=== PATIENT | female | born 1945 | race Caucasian/White ===

== ENCOUNTER 2017-05-24 13:20 | Outpatient (CLI) | payer OTHER | END 2017-05-24 18:34 | disposition home or self-care (01) | LOC: SMA 13:20 | PROVIDERS: ATTEND Internal Medicine | DX: Z12.31 Encounter for screening mammogram for malignant neoplasm of breast (principal) | CPT/HCPCS: G0202 ==

== ENCOUNTER 2017-07-28 14:03 | Outpatient (CLI) | payer OTHER ==
[~2017-07-28 14:03] MED LIST: ALLO100T PO; CARV25TA55 PO; DIGO125T4 PO; EZET10TA PO; METO2.5T15 PO; OMEP40CA33 PO; POTA20TA83 PO; PRO20 PO; REPA1TAB3 PO; ROSU20TA PO; SACU1TAB PO; WARF2.5T2 PO
== END 2017-07-28 17:25 | disposition home or self-care (01) ==
LOC: SRD 14:03
PROVIDERS: ATTEND Internal Medicine
DX: I50.9 Heart failure, unspecified (principal); I51.7 Cardiomegaly; I70.90 Unspecified atherosclerosis; J98.11 Atelectasis
CPT/HCPCS: 71020-TC

== ENCOUNTER 2018-03-03 04:57 | Inpatient (IN) | payer OTHER ==
[~2018-03-03] VITALS: Ht 157.5 cm; Wt 92.1 kg
[~2018-03-03 04:57] MED LIST changes: +ALLO100T91 PO; +AMI200 PO; +DIGO125T79 PO; +FURO-150 PO; +METO2.5T6 PO
[2018-03-03 04:58] VITALS: BP_SYST 131
[2018-03-03] MEDS ORDERED: NACL 0.9% 1,000 ML IV ONE (05:02)
[2018-03-03] MEDS ORDERED: NITROGLYCERIN 1 INCH (GM) OINT. TP ONE (05:15)
[2018-03-03] MEDS ORDERED: ASPIRIN 81 MG TAB.CHEW PO ONE (05:15)
[2018-03-03] MEDS ORDERED: KETOROLAC TROMETHAMINE 15 MG VIAL IVP ONE (05:15)
[2018-03-03] MEDS ORDERED: REPA0.5T4 PO (05:22)
[2018-03-03] MEDS ORDERED: CORCR20 PO (05:25)
[2018-03-03] MEDS ORDERED: SPIR25TA PO (05:25)
[2018-03-03 05:44] LABS: INR 1.4 (0.8-1.2)
[2018-03-03 05:49] LABS: PROTHROMBIN TIME 14.1 SECS (9.5-12.5)
[2018-03-03 05:51] LABS: HEMATOCRIT 41.8 % (36-48); HEMOGLOBIN 13.6 g/dL (12.0-16.0); MEAN CORPUSCULAR HEMOGLOBIN 28 pg (27-31); MEAN CORPUSCULAR HGB CONC 32 % (32-36); MEAN CORPUSCULAR VOLUME 85 fL (79.0-98.0); PLATELET COUNT (AUTO) 165 K/uL (130-430); RED BLOOD CELL COUNT(AUTO) 4.89 MIL/uL (4.2-6.2); RED CELL DISTRIBUTION WIDTH 19.1 % (9.0-15.0); WHITE BLOOD COUNT (AUTO) 6.5 K/uL (4.8-10.8)
[2018-03-03 06:08] LABS: ANION GAP 6 (5-15); CHLORIDE 103 mmol/L (98-107); GLUCOSE 111 mg/dL (70-99); POTASSIUM 4.6 mmol/L (3.5-5.1); SODIUM SERUM 135 mmol/L (136-145)
[2018-03-03 06:09] LABS: CALCIUM 9.4 mg/dL (8.4-11.0); CREATININE 1.76 mg/dL (0.55-1.30); UREA NITROGEN, BLOOD 52 mg/dL (8-21)
[2018-03-03 06:11] LABS: TOTAL BILIRUBIN 0.5 mg/dL (0.0-1.0)
[2018-03-03 06:14] LABS: ASPARTATE AMINOTRANSFERASE 59 U/L (10-37)
[2018-03-03 06:15] LABS: ALANINE AMINOTRANSFERASE 66 U/L (12-78); ALBUMIN 3.4 g/dL (3.4-4.8)
[2018-03-03 06:20] LABS: DIGOXIN 0.4 ng/mL (0.80-2.00)
[2018-03-03 06:36] LABS: BASOPHILS % (MANUAL) 0 % (0-2); EOSINOPHILS % (MANUAL) 3 % (0-7); LYMPHOCYTES % (MANUAL) 21 % (20-46); MONOCYTES % (MANUAL) 7 % (0-11)
[2018-03-03 08:10] VITALS: BP_SYST 132
[2018-03-03] MEDS ORDERED: REPAGLINIDE 1 MG TABLET (PRANDIN) PO ONE (08:30)
[2018-03-03] MEDS: ENTRESTO PO SCH ×2 (09:00→20:27)
[2018-03-03] MEDS ORDERED: METOLAZONE 2.5 MG TABLET PO SCH (09:00)
[2018-03-03] MEDS: FUROSEMIDE 20 MG TABLET PO SCH (10:00)
[2018-03-03] MEDS: EZETIMIBE 10 MG TABLET PO SCH (10:01)
[2018-03-03] MEDS: CARVEDILOL 25 MG TABLET (COREG) PO SCH ×2 (10:01→20:21)
[2018-03-03] MEDS: DIGOXIN 0.125 MG TABLET PO SCH (10:02)
[2018-03-03] MEDS: SPIRONOLACTONE 25 MG TABLET (ALDACTONE) PO SCH (10:02)
[2018-03-03] MEDS: POTASSIUM CHLORIDE 20 MEQ TAB.PRT.SR PO SCH ×2 (10:03→20:21)
[2018-03-03] MEDS: ALLOPURINOL 100 MG TABLET (ZYLOPRIM) PO SCH ×4 (10:03→20:21)
[2018-03-03] MEDS ORDERED: ONDANSETRON HCL 4 MG/2 ML VIAL IVP PRN (10:30)
[2018-03-03] MEDS ORDERED: MORPHINE 4 MG/ML INJ. SYRINGE IVP PRN (10:30)
[2018-03-03] MEDS ORDERED: MORPHINE 2 MG/ML INJ. SYRINGE IVP PRN (10:30)
[2018-03-03] MEDS ORDERED: ACETAMINOPHEN 325 MG TABLET PO PRN (10:30)
[2018-03-03 12:48] VITALS: BP_SYST 94
[2018-03-03] MEDS ORDERED: WARFARIN SODIUM 2.5 MG TABLET PO SCH (17:00)
[2018-03-03] MEDS: REPAGLINIDE 1 MG TABLET (PRANDIN) PO SCH (17:13)
[2018-03-03 17:20] VITALS: BP_SYST 95
[2018-03-03 20:09] VITALS: BP_SYST 115
[2018-03-03] MEDS ORDERED: SIMVASTATIN 20 MG TABLET PO SCH (21:00)
[2018-03-04 00:21] VITALS: BP_SYST 108
[2018-03-04 07:12] LABS: INR 1.5 (0.8-1.2); PROTHROMBIN TIME 15.2 SECS (9.5-12.5)
[2018-03-04] MEDS: REPAGLINIDE 1 MG TABLET (PRANDIN) PO SCH (07:51)
[2018-03-04 07:59] VITALS: BP_SYST 104
[2018-03-04] MEDS: ENTRESTO PO SCH (09:00)
[2018-03-04] MEDS: FUROSEMIDE 20 MG TABLET PO SCH (09:36)
[2018-03-04] MEDS: CARVEDILOL 25 MG TABLET (COREG) PO SCH (09:37)
[2018-03-04] MEDS: DIGOXIN 0.125 MG TABLET PO SCH (09:37)
[2018-03-04] MEDS: ALLOPURINOL 100 MG TABLET (ZYLOPRIM) PO SCH (09:37)
[2018-03-04] MEDS: POTASSIUM CHLORIDE 20 MEQ TAB.PRT.SR PO SCH (09:38)
[2018-03-04] MEDS: SPIRONOLACTONE 25 MG TABLET (ALDACTONE) PO SCH (09:38)
[2018-03-04] MEDS: EZETIMIBE 10 MG TABLET PO SCH (09:38)
[2018-03-04] MEDS ORDERED: INSULIN ASPART 100 UNITS/ML, 10 ML VIAL (NovoLOG) SUBCUT PRN (10:15)
[2018-03-04] MEDS ORDERED: GLUCOSE 15 GM GEL (in 37.5 GM TUBE) PO PRN ×2 (10:15)
[2018-03-04] MEDS ORDERED: DEXTROSE 50%-WATER 50 ML DISP.SYRIN IVP PRN ×2 (10:15)
[2018-03-04 11:05] LABS: BASOPHILS # (AUTO) 0.4 K/uL (0.0-0.2); BASOPHILS % (AUTO) 2.8 % (0.0-2.0); EOSINOPHILS # (AUTO) 0.1 K/uL (0.0-0.4); EOSINOPHILS % (AUTO) 0.4 % (0.0-4.0); HEMATOCRIT 40.5 % (36-48); HEMOGLOBIN 13.1 g/dL (12.0-16.0); LYMPHOCYTES # (AUTO) 0.9 K/uL (1.0-5.5); LYMPHOCYTES % (AUTO) 6.8 % (20.5-51.5); MEAN CORPUSCULAR HEMOGLOBIN 28 pg (27-31); MEAN CORPUSCULAR HGB CONC 32 % (32-36); MEAN CORPUSCULAR VOLUME 85 fL (79.0-98.0); MONOCYTES % (AUTO) 7.9 % (1.7-9.3); NEUTROPHILS # (AUTO) 10.2 K/uL (1.8-7.7); NEUTROPHILS % (AUTO) 82.1 % (40.0-70.0); PLATELET COUNT (AUTO) 148 K/uL (130-430); RED BLOOD CELL COUNT(AUTO) 4.75 MIL/uL (4.2-6.2); WHITE BLOOD COUNT (AUTO) 12.6 K/uL (4.8-10.8)
[2018-03-04 11:09] LABS: ANION GAP 8 (5-15); CALCIUM 9.2 mg/dL (8.4-11.0); CHLORIDE 101 mmol/L (98-107); CREATININE 1.54 mg/dL (0.55-1.30); GLUCOSE 114 mg/dL (70-99); POTASSIUM 4.6 mmol/L (3.5-5.1); SODIUM SERUM 135 mmol/L (136-145); UREA NITROGEN, BLOOD 51 mg/dL (8-21)
[2018-03-04 11:15] LABS: ALANINE AMINOTRANSFERASE 59 U/L (12-78); ALBUMIN 3.1 g/dL (3.4-4.8); ASPARTATE AMINOTRANSFERASE 54 U/L (10-37); TOTAL BILIRUBIN 0.7 mg/dL (0.0-1.0)
[2018-03-04 12:33] VITALS: BP_SYST 99
[2018-03-04 12:53] VITALS: BP_SYST 97
[2018-03-06] MEDS ORDERED: OMEPRAZOLE 20 MG CAPSULE.DR (PriLOSEC) PO SCH (09:00)
== END 2018-03-04 13:30 | disposition home or self-care (01) | DRG 683 ==
LOC: SED 04:57 → STU 07:14 → OBSVTOIN 15:01 → MERGE 15:01
PROVIDERS: ADMIT Internal Medicine Hospice and Palliative Medicine; ATTEND Internal Medicine Hospice and Palliative Medicine
DX: N17.9 Acute kidney failure, unspecified (principal); I42.9 Cardiomyopathy, unspecified; I13.0 Hypertensive heart and chronic kidney disease with heart failure and stage 1 through stage 4 chronic kidney disease, or unspecified chronic kidney disease; I48.1 Persistent atrial fibrillation; I50.22 Chronic systolic (congestive) heart failure; R07.89 Other chest pain; R10.32 Left lower quadrant pain; J44.9 Chronic obstructive pulmonary disease, unspecified; K21.9 Gastro-esophageal reflux disease without esophagitis; I50.9 Heart failure, unspecified; F32.9 Major depressive disorder, single episode, unspecified; I25.10 Atherosclerotic heart disease of native coronary artery without angina pectoris; N18.9 Chronic kidney disease, unspecified; E11.22 Type 2 diabetes mellitus with diabetic chronic kidney disease; E78.5 Hyperlipidemia, unspecified; Z99.81 Dependence on supplemental oxygen; Z79.899 Other long term (current) drug therapy; Z79.01 Long term (current) use of anticoagulants; Z95.810 Presence of automatic (implantable) cardiac defibrillator
CPT/HCPCS: 36415; 71045; 80053; 80162-TC; 82962; 84484; 85007; 85025; 85027; 85379; 85610-TC; 85730-TC; 93005; 93306; 96361; 96374; 99285; G0378; J1885; J2270

== ENCOUNTER 2018-05-26 08:39 | Outpatient (CLI) | payer OTHER ==
[~2018-05-26 08:39] MED LIST changes: -AMI200 PO; +DIGO-31 PO; -DIGO125T4 PO; +REPA0.5T4 PO; +SPIR25TA PO
== END 2018-05-26 18:15 | disposition home or self-care (01) ==
LOC: SMA 08:39
PROVIDERS: ATTEND Internal Medicine
DX: Z12.31 Encounter for screening mammogram for malignant neoplasm of breast (principal); I11.0 Hypertensive heart disease with heart failure; I50.9 Heart failure, unspecified; J44.9 Chronic obstructive pulmonary disease, unspecified; K21.9 Gastro-esophageal reflux disease without esophagitis; E11.9 Type 2 diabetes mellitus without complications
CPT/HCPCS: 77067

== ENCOUNTER 2018-08-29 06:46 | Inpatient (IN) | payer OTHER ==
[~2018-08-29] VITALS: Ht 157.5 cm; Wt 95.7 kg
[2018-08-29 07:06] VITALS: BP_SYST 125
[2018-08-29 07:41] LABS: BASOPHILS % (AUTO) 0.6 % (0.0-2.0); EOSINOPHILS % (AUTO) 0.4 % (0.0-4.0); HEMATOCRIT 40.6 % (36-48); HEMOGLOBIN 13.2 g/dL (12.0-16.0); LYMPHOCYTES # (AUTO) 1.2 K/uL (1.0-5.5); LYMPHOCYTES % (AUTO) 18.9 % (20.5-51.5); MEAN CORPUSCULAR HEMOGLOBIN 28 pg (27-31); MEAN CORPUSCULAR HGB CONC 32 % (32-36); MEAN CORPUSCULAR VOLUME 86 fL (79.0-98.0); MONOCYTES # (AUTO) 0.3 K/uL (0.0-1.0); MONOCYTES % (AUTO) 5.4 % (1.7-9.3); NEUTROPHILS # (AUTO) 4.9 K/uL (1.8-7.7); NEUTROPHILS % (AUTO) 74.7 % (40.0-70.0); PLATELET COUNT (AUTO) 139 K/uL (130-430); RED BLOOD CELL COUNT(AUTO) 4.74 MIL/uL (4.2-6.2); RED CELL DISTRIBUTION WIDTH 16.2 % (9.0-15.0); WHITE BLOOD COUNT (AUTO) 6.4 K/uL (4.8-10.8)
[2018-08-29 07:46] LABS: ANION GAP 11 (5-15); CHLORIDE 100 mmol/L (98-107); CREATININE 2.21 mg/dL (0.55-1.30); GLUCOSE 179 mg/dL (70-99); POTASSIUM 4.9 mmol/L (3.5-5.1); SODIUM SERUM 137 mmol/L (136-145); UREA NITROGEN, BLOOD 60 mg/dL (8-21)
[2018-08-29 07:50] LABS: INR 2.6 (0.8-1.2)
[2018-08-29 07:52] LABS: ALANINE AMINOTRANSFERASE 47 U/L (12-78); ALBUMIN 3.5 g/dL (3.4-4.8); ASPARTATE AMINOTRANSFERASE 63 U/L (10-37); TOTAL BILIRUBIN 0.7 mg/dL (0.0-1.0)
[2018-08-29] MEDS ORDERED: ONDANSETRON HCL 4 MG/2 ML VIAL IVP ONE (08:30)
[2018-08-29 09:42] VITALS: BP_SYST 125
[2018-08-29 12:00] VITALS: BP_SYST 133
[2018-08-29] MEDS ORDERED: FLUoxetine HCL 20 MG CAPSULE (PROzac) PO ONE (12:00)
[2018-08-29] MEDS ORDERED: OMEPRAZOLE 20 MG CAPSULE.DR (PriLOSEC) PO ONE (12:00)
[2018-08-29] MEDS ORDERED: FUROSEMIDE 20 MG/2 ML VIAL IVP SCH (12:00)
[2018-08-29] MEDS: ALLOPURINOL 100 MG TABLET (ZYLOPRIM) PO SCH ×2 (14:21→20:24)
[2018-08-29 16:00] VITALS: BP_SYST 137
[2018-08-29] MEDS: WARFARIN SODIUM 2.5 MG TABLET PO SCH (17:49)
[2018-08-29 20:00] VITALS: BP_SYST 117
[2018-08-29] MEDS: POTASSIUM CHLORIDE 20 MEQ TAB.PRT.SR PO SCH (20:22)
[2018-08-29] MEDS: FUROSEMIDE 20 MG/2 ML VIAL IVP SCH (20:22)
[2018-08-29] MEDS: ENTRESTO 49-51 MG PO SCH (20:23)
[2018-08-29] MEDS: CARVEDILOL 25 MG TABLET (COREG) PO SCH (20:23)
[2018-08-30] VITALS: BP_SYST 114
[2018-08-30] MEDS: OMEPRAZOLE 20 MG CAPSULE.DR (PriLOSEC) PO SCH (05:59)
[2018-08-30 07:04] LABS: ALANINE AMINOTRANSFERASE 36 U/L (12-78); ALBUMIN 3.2 g/dL (3.4-4.8); ANION GAP 8 (5-15); ASPARTATE AMINOTRANSFERASE 35 U/L (10-37); CALCIUM 9.6 mg/dL (8.4-11.0); CHLORIDE 101 mmol/L (98-107); CREATININE 2.25 mg/dL (0.55-1.30); GLUCOSE 105 mg/dL (70-99); POTASSIUM 4.8 mmol/L (3.5-5.1); SODIUM SERUM 136 mmol/L (136-145); TOTAL BILIRUBIN 0.6 mg/dL (0.0-1.0); UREA NITROGEN, BLOOD 62 mg/dL (8-21)
[2018-08-30 08:31] VITALS: BP_SYST 95
[2018-08-30] MEDS: CARVEDILOL 25 MG TABLET (COREG) PO SCH ×2 (09:00→21:17)
[2018-08-30] MEDS: FUROSEMIDE 20 MG/2 ML VIAL IVP SCH ×2 (09:00→21:18)
[2018-08-30] MEDS: POTASSIUM CHLORIDE 20 MEQ TAB.PRT.SR PO SCH ×2 (09:00→21:17)
[2018-08-30] MEDS: FLUoxetine HCL 20 MG CAPSULE (PROzac) PO SCH (09:27)
[2018-08-30] MEDS: ATORVASTATIN 20 MG TABLET PO SCH (09:27)
[2018-08-30] MEDS: ALLOPURINOL 100 MG TABLET (ZYLOPRIM) PO SCH ×3 (09:27→21:18)
[2018-08-30] MEDS: EZETIMIBE 10 MG TABLET PO SCH (09:28)
[2018-08-30] MEDS: ENTRESTO 49-51 MG PO SCH ×2 (09:29→21:19)
[2018-08-30 12:17] VITALS: BP_SYST 95
[2018-08-30 16:58] VITALS: BP_SYST 103
[2018-08-30] MEDS: WARFARIN SODIUM 2.5 MG TABLET PO SCH (17:57)
[2018-08-30] MEDS ORDERED: SACU1TAB PO (19:49)
[2018-08-30 20:00] VITALS: BP_SYST 104
[2018-08-31 00:50] VITALS: BP_SYST 109
[2018-08-31] MEDS: OMEPRAZOLE 20 MG CAPSULE.DR (PriLOSEC) PO SCH (06:08)
[2018-08-31 06:22] LABS: ANION GAP 6 (5-15); CALCIUM 9.4 mg/dL (8.4-11.0); CHLORIDE 101 mmol/L (98-107); CREATININE 2.06 mg/dL (0.55-1.30); GLUCOSE 96 mg/dL (70-99); POTASSIUM 4.8 mmol/L (3.5-5.1); SODIUM SERUM 137 mmol/L (136-145); UREA NITROGEN, BLOOD 62 mg/dL (8-21)
[2018-08-31 06:35] LABS: ALANINE AMINOTRANSFERASE 31 U/L (12-78); ALBUMIN 3.1 g/dL (3.4-4.8); ASPARTATE AMINOTRANSFERASE 26 U/L (10-37); TOTAL BILIRUBIN 0.7 mg/dL (0.0-1.0)
[2018-08-31 08:00] VITALS: BP_SYST 94
[2018-08-31] MEDS: CARVEDILOL 25 MG TABLET (COREG) PO SCH ×2 (09:00→20:18)
[2018-08-31] MEDS: POTASSIUM CHLORIDE 20 MEQ TAB.PRT.SR PO SCH ×2 (09:00→20:21)
[2018-08-31] MEDS: SPIRONOLACTONE 25 MG TABLET (ALDACTONE) PO SCH (09:00)
[2018-08-31] MEDS: FUROSEMIDE 20 MG/2 ML VIAL IVP SCH ×2 (09:00→20:18)
[2018-08-31] MEDS: ATORVASTATIN 20 MG TABLET PO SCH (09:04)
[2018-08-31] MEDS: ALLOPURINOL 100 MG TABLET (ZYLOPRIM) PO SCH ×3 (09:04→20:21)
[2018-08-31] MEDS: FLUoxetine HCL 20 MG CAPSULE (PROzac) PO SCH (09:04)
[2018-08-31] MEDS: EZETIMIBE 10 MG TABLET PO SCH (09:04)
[2018-08-31] MEDS: ENTRESTO 49-51 MG PO SCH ×2 (09:05→20:22)
[2018-08-31 09:51] LABS: INR 3.7 (0.8-1.2); PROTHROMBIN TIME 35.4 SECS (9.5-12.5)
[2018-08-31 12:53] VITALS: BP_SYST 91
[2018-08-31 17:13] VITALS: BP_SYST 92
[2018-08-31 20:00] VITALS: BP_SYST 94
[2018-09-01 01:46] VITALS: BP_SYST 110
[2018-09-01 06:02] LABS: ALANINE AMINOTRANSFERASE 29 U/L (12-78); ANION GAP 9 (5-15); ASPARTATE AMINOTRANSFERASE 31 U/L (10-37); CHLORIDE 101 mmol/L (98-107); CREATININE 1.94 mg/dL (0.55-1.30); GLUCOSE 120 mg/dL (70-99); POTASSIUM 4.9 mmol/L (3.5-5.1); SODIUM SERUM 135 mmol/L (136-145); TOTAL BILIRUBIN 0.7 mg/dL (0.0-1.0); UREA NITROGEN, BLOOD 62 mg/dL (8-21)
[2018-09-01] MEDS: OMEPRAZOLE 20 MG CAPSULE.DR (PriLOSEC) PO SCH (06:24)
[2018-09-01 06:35] LABS: CALCIUM 9.2 mg/dL (8.4-11.0)
[2018-09-01 08:00] VITALS: BP_SYST 117
[2018-09-01] MEDS: FLUoxetine HCL 20 MG CAPSULE (PROzac) PO SCH (08:27)
[2018-09-01] MEDS: ATORVASTATIN 20 MG TABLET PO SCH (08:28)
[2018-09-01] MEDS: POTASSIUM CHLORIDE 20 MEQ TAB.PRT.SR PO SCH (08:28)
[2018-09-01] MEDS: ALLOPURINOL 100 MG TABLET (ZYLOPRIM) PO SCH ×2 (08:28→15:00)
[2018-09-01] MEDS: CARVEDILOL 25 MG TABLET (COREG) PO SCH (08:28)
[2018-09-01] MEDS: EZETIMIBE 10 MG TABLET PO SCH (08:29)
[2018-09-01] MEDS: ENTRESTO 49-51 MG PO SCH (09:00)
[2018-09-01] MEDS: FUROSEMIDE 20 MG/2 ML VIAL IVP SCH (09:00)
[2018-09-01] MEDS: SPIRONOLACTONE 25 MG TABLET (ALDACTONE) PO SCH (09:00)
[2018-09-01 09:38] LABS: HEMATOCRIT 37.2 % (36-48); HEMOGLOBIN 12.2 g/dL (12.0-16.0); MEAN CORPUSCULAR HEMOGLOBIN 29 pg (27-31); MEAN CORPUSCULAR HGB CONC 33 % (32-36); MEAN CORPUSCULAR VOLUME 87 fL (79.0-98.0); PLATELET COUNT (AUTO) 146 K/uL (130-430); RED BLOOD CELL COUNT(AUTO) 4.27 MIL/uL (4.2-6.2); RED CELL DISTRIBUTION WIDTH 15.9 % (9.0-15.0); WHITE BLOOD COUNT (AUTO) 5.4 K/uL (4.8-10.8)
[2018-09-01 09:39] LABS: BASOPHILS # (AUTO) 0.1 K/uL (0.0-0.2); BASOPHILS % (AUTO) 1.9 % (0.0-2.0); EOSINOPHILS % (AUTO) 0.7 % (0.0-4.0); LYMPHOCYTES % (AUTO) 18.1 % (20.5-51.5); MONOCYTES # (AUTO) 0.3 K/uL (0.0-1.0); NEUTROPHILS # (AUTO) 3.9 K/uL (1.8-7.7); NEUTROPHILS % (AUTO) 73.3 % (40.0-70.0)
[2018-09-01 09:50] LABS: PROTHROMBIN TIME 29.1 SECS (9.5-12.5)
[2018-09-01] MEDS ORDERED: DILTIAZEM HCL 30 MG TABLET PO ONE (10:45)
[2018-09-01] MEDS ORDERED: WARFARIN SODIUM 1 MG TABLET PO SCH (10:58)
[2018-09-01 12:00] VITALS: BP_SYST 86
[2018-09-01 12:49] VITALS: BP_SYST 86
[2018-09-01] MEDS ORDERED: DILTIAZEM HCL 30 MG TABLET PO SCH (14:00)
[2018-09-01 17:11] VITALS: BP_SYST 80
== END 2018-09-01 18:30 | disposition home or self-care (01) | DRG 291 ==
LOC: SED 06:46 → STU 09:09
PROVIDERS: ADMIT Internal Medicine Hospice and Palliative Medicine; ATTEND Internal Medicine Hospice and Palliative Medicine
DX: I13.0 Hypertensive heart and chronic kidney disease with heart failure and stage 1 through stage 4 chronic kidney disease, or unspecified chronic kidney disease (principal); I50.23 Acute on chronic systolic (congestive) heart failure; N17.9 Acute kidney failure, unspecified; I47.2 Ventricular tachycardia; I48.1 Persistent atrial fibrillation; I42.0 Dilated cardiomyopathy; E78.5 Hyperlipidemia, unspecified; I34.0 Nonrheumatic mitral (valve) insufficiency; I48.2 Chronic atrial fibrillation; I49.3 Ventricular premature depolarization; N18.3 Chronic kidney disease, stage 3 (moderate); E78.00 Pure hypercholesterolemia, unspecified; J44.9 Chronic obstructive pulmonary disease, unspecified; K21.9 Gastro-esophageal reflux disease without esophagitis; Z79.01 Long term (current) use of anticoagulants; Z82.49 Family history of ischemic heart disease and other diseases of the circulatory system; Z83.3 Family history of diabetes mellitus; Z95.810 Presence of automatic (implantable) cardiac defibrillator
CPT/HCPCS: 36415; 71045; 76770; 80053; 82550-TC; 83880; 84484; 85025; 85610-TC; 85730-TC; 93005; 96374; 99285; G0378; J1940; J2405

== ENCOUNTER 2018-09-08 13:47 | Inpatient (IN) | payer OTHER ==
[~2018-09-08] VITALS: Ht 157.5 cm; Wt 95.7 kg
[~2018-09-08 13:47] MED LIST changes: -ALLO100T PO; -DIGO-31 PO; -DIGO125T79 PO; -METO2.5T15 PO; -METO2.5T6 PO; -REPA0.5T4 PO; -REPA1TAB3 PO; -SPIR25TA PO
[2018-09-08 13:56] VITALS: BP_SYST 97
[2018-09-08] MEDS ORDERED: METO2.5T6 PO (14:16)
[2018-09-08] MEDS ORDERED: SPIR25TA PO (14:16)
[2018-09-08] MEDS ORDERED: NACL 0.9% 1,000 ML IV ONE (14:30)
[2018-09-08 14:44] LABS: BASOPHILS % (AUTO) 0.5 % (0.0-2.0); EOSINOPHILS % (AUTO) 0.5 % (0.0-4.0); HEMATOCRIT 38.3 % (36-48); HEMOGLOBIN 12.3 g/dL (12.0-16.0); LYMPHOCYTES # (AUTO) 0.9 K/uL (1.0-5.5); MEAN CORPUSCULAR HEMOGLOBIN 28 pg (27-31); MEAN CORPUSCULAR HGB CONC 32 % (32-36); MEAN CORPUSCULAR VOLUME 89 fL (79.0-98.0); MONOCYTES # (AUTO) 0.5 K/uL (0.0-1.0); MONOCYTES % (AUTO) 6.6 % (1.7-9.3); NEUTROPHILS # (AUTO) 5.7 K/uL (1.8-7.7); NEUTROPHILS % (AUTO) 80.4 % (40.0-70.0); PLATELET COUNT (AUTO) 134 K/uL (130-430); RED BLOOD CELL COUNT(AUTO) 4.32 MIL/uL (4.2-6.2); WHITE BLOOD COUNT (AUTO) 7.1 K/uL (4.8-10.8)
[2018-09-08 14:47] LABS: ANION GAP 6 (5-15); CALCIUM 9.6 mg/dL (8.4-11.0); CHLORIDE 100 mmol/L (98-107); CREATININE 2.36 mg/dL (0.55-1.30); GLUCOSE 162 mg/dL (70-99); POTASSIUM 5.7 mmol/L (3.5-5.1); SODIUM SERUM 131 mmol/L (136-145); UREA NITROGEN, BLOOD 69 mg/dL (8-21)
[2018-09-08 14:50] LABS: INR 3.4 (0.8-1.2)
[2018-09-08 14:52] LABS: ALANINE AMINOTRANSFERASE 32 U/L (12-78); ALBUMIN 3.4 g/dL (3.4-4.8); ASPARTATE AMINOTRANSFERASE 32 U/L (10-37); TOTAL BILIRUBIN 0.6 mg/dL (0.0-1.0)
[2018-09-08 15:05] LABS: PROTHROMBIN TIME 32.9 SECS (9.5-12.5)
[2018-09-08] MEDS ORDERED: SODIUM POLYSTYRENE SULFONATE 15 GM/60 ML UDBTL PO ONE (15:15)
[2018-09-08] MEDS ORDERED: PHYTONADIONE 10 MG/ML AMP SUBCUT ONE (15:15)
[2018-09-08 15:50] LABS: BILIRUBIN,URINE NEGATIVE (NEGATIVE); CLARITY/URINE CLEAR (CLEAR); COLOR,URINE YELLOW (YELLOW); GLUCOSE,URINE NEGATIVE (NEGATIVE); KETONES,URINE NEGATIVE (NEGATIVE); LEUKOCYTE ESTERASE ,URINE TRACE (NEGATIVE); NITRITE, URINE NEGATIVE (NEGATIVE); PH,URINE 5.5 (5.0-8.0); PROTEIN URINE TRACE (NEGATIVE); UROBILINOGEN,URINE 0.2 (0.2-1.0)
[2018-09-08 15:51] LABS: BLOOD, URINE TRACE (NEGATIVE)
[2018-09-08 15:57] LABS: BACTERIA,URINE FEW /HPF (None Seen); FINE GRANULAR CASTS,URINE 0-10 /LPF (None Seen)
[2018-09-08] MEDS: NACL 0.9% 1,000 ML IV SCH (16:49)
[2018-09-08 17:03] VITALS: BP_SYST 100
[2018-09-08 20:00] VITALS: BP_SYST 93
[2018-09-08 23:29] VITALS: BP_SYST 104
[2018-09-09] MEDS: NACL 0.9% 1,000 ML IV SCH (03:20)
[2018-09-09 05:57] VITALS: BP_SYST 111
[2018-09-09 06:19] LABS: BASOPHILS % (AUTO) 0.7 % (0.0-2.0); EOSINOPHILS % (AUTO) 0.2 % (0.0-4.0); HEMATOCRIT 37.5 % (36-48); HEMOGLOBIN 11.9 g/dL (12.0-16.0); LYMPHOCYTES # (AUTO) 0.8 K/uL (1.0-5.5); LYMPHOCYTES % (AUTO) 12.1 % (20.5-51.5); MEAN CORPUSCULAR HEMOGLOBIN 28 pg (27-31); MEAN CORPUSCULAR HGB CONC 32 % (32-36); MEAN CORPUSCULAR VOLUME 88 fL (79.0-98.0); MONOCYTES # (AUTO) 0.5 K/uL (0.0-1.0); MONOCYTES % (AUTO) 8.2 % (1.7-9.3); NEUTROPHILS % (AUTO) 78.8 % (40.0-70.0); PLATELET COUNT (AUTO) 130 K/uL (130-430); RED BLOOD CELL COUNT(AUTO) 4.26 MIL/uL (4.2-6.2); RED CELL DISTRIBUTION WIDTH 15.7 % (9.0-15.0); WHITE BLOOD COUNT (AUTO) 6.3 K/uL (4.8-10.8)
[2018-09-09 06:27] LABS: ALANINE AMINOTRANSFERASE 24 U/L (12-78); ANION GAP 6 (5-15); ASPARTATE AMINOTRANSFERASE 26 U/L (10-37); CALCIUM 9.4 mg/dL (8.4-11.0); CHLORIDE 102 mmol/L (98-107); GLUCOSE 126 mg/dL (70-99); POTASSIUM 4.8 mmol/L (3.5-5.1); SODIUM SERUM 132 mmol/L (136-145); TOTAL BILIRUBIN 0.7 mg/dL (0.0-1.0); UREA NITROGEN, BLOOD 67 mg/dL (8-21)
[2018-09-09 08:00] VITALS: BP_SYST 114
[2018-09-09 11:14] VITALS: BP_SYST 105
[2018-09-09 13:10] LABS: INR 2.3 (0.8-1.2); PROTHROMBIN TIME 22.7 SECS (9.5-12.5)
[2018-09-09] MEDS: ALLOPURINOL 100 MG TABLET (ZYLOPRIM) PO SCH ×2 (14:50→20:11)
[2018-09-09 16:16] VITALS: BP_SYST 109
[2018-09-09] MEDS: WARFARIN SODIUM 2.5 MG TABLET PO SCH (17:07)
[2018-09-09 20:00] VITALS: BP_SYST 101
[2018-09-09] MEDS: POTASSIUM CHLORIDE 20 MEQ TAB.PRT.SR PO SCH (20:11)
[2018-09-09] MEDS: CARVEDILOL 12.5 MG TABLET (COREG) PO SCH (20:12)
[2018-09-09 23:39] VITALS: BP_SYST 102
[2018-09-10] MEDS: OMEPRAZOLE Non-Formulary 20 MG CAPSULE.DR PO SCH (05:58)
[2018-09-10 06:28] LABS: INR 1.7 (0.8-1.2); PROTHROMBIN TIME 16.8 SECS (9.5-12.5)
[2018-09-10] MEDS ORDERED: DIGOXIN 0.5 MG/2 ML AMP IVP ONE (08:00)
[2018-09-10] MEDS: DIGOXIN 0.125 MG TABLET PO SCH (08:32)
[2018-09-10] MEDS: ALLOPURINOL 100 MG TABLET (ZYLOPRIM) PO SCH ×3 (08:35→20:03)
[2018-09-10] MEDS: EZETIMIBE 10 MG TABLET PO SCH (08:35)
[2018-09-10] MEDS: FLUoxetine HCL 20 MG CAPSULE (PROzac) PO SCH (08:35)
[2018-09-10] MEDS: ATORVASTATIN 10 MG TABLET PO SCH (08:35)
[2018-09-10] MEDS: POTASSIUM CHLORIDE 20 MEQ TAB.PRT.SR PO SCH ×2 (08:35→20:03)
[2018-09-10] MEDS: SPIRONOLACTONE 25 MG TABLET (ALDACTONE) PO SCH (08:36)
[2018-09-10] MEDS: CARVEDILOL 12.5 MG TABLET (COREG) PO SCH ×2 (08:36→20:03)
[2018-09-10] MEDS ORDERED: FUROSEMIDE 20 MG TABLET PO SCH ×2 (09:00)
[2018-09-10 09:54] VITALS: BP_SYST 111
[2018-09-10 14:35] VITALS: BP_SYST 94
[2018-09-10 16:24] VITALS: BP_SYST 105
[2018-09-10] MEDS: WARFARIN SODIUM 2.5 MG TABLET PO SCH (17:43)
[2018-09-10 20:00] VITALS: BP_SYST 109
[2018-09-11 00:57] VITALS: BP_SYST 112
[2018-09-11] MEDS: OMEPRAZOLE Non-Formulary 20 MG CAPSULE.DR PO SCH (06:20)
[2018-09-11 06:57] LABS: INR 1.5 (0.8-1.2); PROTHROMBIN TIME 14.7 SECS (9.5-12.5)
[2018-09-11 07:10] LABS: ALANINE AMINOTRANSFERASE 30 U/L (12-78); ALBUMIN 3.1 g/dL (3.4-4.8); ANION GAP 8 (5-15); ASPARTATE AMINOTRANSFERASE 22 U/L (10-37); CALCIUM 9.8 mg/dL (8.4-11.0); CHLORIDE 105 mmol/L (98-107); CREATININE 2.55 mg/dL (0.55-1.30); GLUCOSE 115 mg/dL (70-99); POTASSIUM 5.2 mmol/L (3.5-5.1); SODIUM SERUM 136 mmol/L (136-145); TOTAL BILIRUBIN 0.8 mg/dL (0.0-1.0); UREA NITROGEN, BLOOD 68 mg/dL (8-21)
[2018-09-11 08:24] VITALS: BP_SYST 104
[2018-09-11] MEDS: ATORVASTATIN 10 MG TABLET PO SCH (08:26)
[2018-09-11] MEDS: POTASSIUM CHLORIDE 20 MEQ TAB.PRT.SR PO SCH ×2 (08:26→21:24)
[2018-09-11] MEDS: FLUoxetine HCL 20 MG CAPSULE (PROzac) PO SCH (08:26)
[2018-09-11] MEDS: SPIRONOLACTONE 25 MG TABLET (ALDACTONE) PO SCH (08:26)
[2018-09-11] MEDS: ALLOPURINOL 100 MG TABLET (ZYLOPRIM) PO SCH ×3 (08:26→21:24)
[2018-09-11] MEDS: EZETIMIBE 10 MG TABLET PO SCH (08:26)
[2018-09-11] MEDS: DIGOXIN 0.125 MG TABLET PO SCH (08:27)
[2018-09-11] MEDS ORDERED: METOLAZONE 2.5 MG TABLET PO SCH (09:00)
[2018-09-11] MEDS ORDERED: ONDANSETRON HCL 4 MG/2 ML VIAL IVP PRN (11:45)
[2018-09-11 12:10] VITALS: BP_SYST 101
[2018-09-11] MEDS: CARVEDILOL 12.5 MG TABLET (COREG) PO SCH ×2 (15:22→21:00)
[2018-09-11 16:55] VITALS: BP_SYST 100
[2018-09-11] MEDS: WARFARIN SODIUM 2.5 MG TABLET PO SCH (17:05)
[2018-09-11 19:55] VITALS: BP_SYST 90
[2018-09-12 01:08] VITALS: BP_SYST 99
[2018-09-12] MEDS: OMEPRAZOLE Non-Formulary 20 MG CAPSULE.DR PO SCH (06:48)
[2018-09-12 07:07] LABS: BASOPHILS % (AUTO) 0.7 % (0.0-2.0); EOSINOPHILS # (AUTO) 0.1 K/uL (0.0-0.4); EOSINOPHILS % (AUTO) 1.1 % (0.0-4.0); HEMATOCRIT 35.7 % (36-48); HEMOGLOBIN 11.7 g/dL (12.0-16.0); LYMPHOCYTES # (AUTO) 0.9 K/uL (1.0-5.5); LYMPHOCYTES % (AUTO) 14.7 % (20.5-51.5); MEAN CORPUSCULAR HEMOGLOBIN 29 pg (27-31); MEAN CORPUSCULAR HGB CONC 33 % (32-36); MEAN CORPUSCULAR VOLUME 88 fL (79.0-98.0); MONOCYTES # (AUTO) 0.7 K/uL (0.0-1.0); MONOCYTES % (AUTO) 12.1 % (1.7-9.3); NEUTROPHILS # (AUTO) 4.3 K/uL (1.8-7.7); NEUTROPHILS % (AUTO) 71.4 % (40.0-70.0); PLATELET COUNT (AUTO) 125 K/uL (130-430); RED BLOOD CELL COUNT(AUTO) 4.04 MIL/uL (4.2-6.2); RED CELL DISTRIBUTION WIDTH 16.3 % (9.0-15.0)
[2018-09-12 07:45] LABS: ANION GAP 7 (5-15); CHLORIDE 104 mmol/L (98-107); POTASSIUM 5.4 mmol/L (3.5-5.1); SODIUM SERUM 135 mmol/L (136-145); TOTAL BILIRUBIN 0.9 mg/dL (0.0-1.0); UREA NITROGEN, BLOOD 65 mg/dL (8-21)
[2018-09-12 07:56] LABS: ALANINE AMINOTRANSFERASE 29 U/L (12-78); ASPARTATE AMINOTRANSFERASE 25 U/L (10-37); CALCIUM 9.5 mg/dL (8.4-11.0); CREATININE 2.42 mg/dL (0.55-1.30); GLUCOSE 102 mg/dL (70-99)
[2018-09-12] MEDS: EZETIMIBE 10 MG TABLET PO SCH (09:26)
[2018-09-12] MEDS: POTASSIUM CHLORIDE 20 MEQ TAB.PRT.SR PO SCH (09:27)
[2018-09-12] MEDS: FLUoxetine HCL 20 MG CAPSULE (PROzac) PO SCH (09:27)
[2018-09-12] MEDS: ATORVASTATIN 10 MG TABLET PO SCH (09:28)
[2018-09-12] MEDS: ALLOPURINOL 100 MG TABLET (ZYLOPRIM) PO SCH (09:28)
[2018-09-12] MEDS: CARVEDILOL 12.5 MG TABLET (COREG) PO SCH (09:28)
[2018-09-12] MEDS: DIGOXIN 0.125 MG TABLET PO SCH (09:28)
[2018-09-12 09:30] VITALS: BP_SYST 102
[2018-09-12] MEDS ORDERED: FURO-150 PO (10:36)
[2018-09-12 10:45] VITALS: BP_SYST 102
[2018-09-12] MEDS ORDERED: CARVEDILOL 25 MG TABLET (COREG) PO SCH (21:00)
== END 2018-09-12 11:35 | disposition home or self-care (01) | DRG 314 ==
LOC: SED 13:47 → STU 15:30
PROVIDERS: ADMIT Internal Medicine Hospice and Palliative Medicine; ATTEND Internal Medicine Hospice and Palliative Medicine
DX: I95.9 Hypotension, unspecified (principal); N17.0 Acute kidney failure with tubular necrosis; I50.23 Acute on chronic systolic (congestive) heart failure; I13.0 Hypertensive heart and chronic kidney disease with heart failure and stage 1 through stage 4 chronic kidney disease, or unspecified chronic kidney disease; I48.1 Persistent atrial fibrillation; I42.0 Dilated cardiomyopathy; E87.5 Hyperkalemia; N18.3 Chronic kidney disease, stage 3 (moderate); E78.5 Hyperlipidemia, unspecified; I34.0 Nonrheumatic mitral (valve) insufficiency; I48.2 Chronic atrial fibrillation; J44.9 Chronic obstructive pulmonary disease, unspecified; K21.9 Gastro-esophageal reflux disease without esophagitis; E78.00 Pure hypercholesterolemia, unspecified; E11.22 Type 2 diabetes mellitus with diabetic chronic kidney disease; E66.9 Obesity, unspecified; Z68.38 Body mass index [BMI] 38.0-38.9, adult; Z79.01 Long term (current) use of anticoagulants; Z79.899 Other long term (current) drug therapy; Z95.810 Presence of automatic (implantable) cardiac defibrillator
CPT/HCPCS: 36415; 71045; 80053; 81000-TC; 83605; 84484; 85025; 85610-TC; 85730-TC; 87040-TC; 87081; 87086; 93005; 96361; 96374; 97116-GP; 97530-GP; 99285; G0378; J1160; J2405; J3430; J7030

== ENCOUNTER 2018-09-21 16:26 | Inpatient (IN) | payer OTHER ==
[~2018-09-21] VITALS: Ht 157.5 cm; Wt 99.3 kg
[~2018-09-21 16:26] MED LIST changes: -POTA20TA83 PO; -SACU1TAB PO
[2018-09-21 16:30] VITALS: BP_SYST 97
[2018-09-21 17:05] LABS: ANION GAP 8 (5-15); CALCIUM 8.9 mg/dL (8.4-11.0); CHLORIDE 98 mmol/L (98-107); CREATININE 2.71 mg/dL (0.55-1.30); GLUCOSE 119 mg/dL (70-99); POTASSIUM 5.2 mmol/L (3.5-5.1); SODIUM SERUM 128 mmol/L (136-145); UREA NITROGEN, BLOOD 66 mg/dL (8-21)
[2018-09-21 17:08] LABS: EOSINOPHILS % (AUTO) 0.5 % (0.0-4.0); LYMPHOCYTES # (AUTO) 0.6 K/uL (1.0-5.5)
[2018-09-21 17:10] LABS: ALANINE AMINOTRANSFERASE 45 U/L (12-78); ALBUMIN 2.9 g/dL (3.4-4.8); ASPARTATE AMINOTRANSFERASE 47 U/L (10-37); TOTAL BILIRUBIN 0.6 mg/dL (0.0-1.0)
[2018-09-21 17:12] LABS: PROTHROMBIN TIME 37.6 SECS (9.5-12.5)
[2018-09-21 17:13] LABS: INR 3.9 (0.8-1.2)
[2018-09-21 17:16] LABS: PLATELET COUNT (AUTO) 136 K/uL (130-430); WHITE BLOOD COUNT (AUTO) 6.8 K/uL (4.8-10.8)
[2018-09-21 17:19] LABS: BASOPHILS % (AUTO) 0.5 % (0.0-2.0); HEMATOCRIT 36.2 % (36-48); HEMOGLOBIN 11.9 g/dL (12.0-16.0); LYMPHOCYTES % (AUTO) 9.1 % (20.5-51.5); MEAN CORPUSCULAR HEMOGLOBIN 29 pg (27-31); MEAN CORPUSCULAR HGB CONC 33 % (32-36); MEAN CORPUSCULAR VOLUME 87 fL (79.0-98.0); MONOCYTES # (AUTO) 0.6 K/uL (0.0-1.0); MONOCYTES % (AUTO) 9.2 % (1.7-9.3); NEUTROPHILS # (AUTO) 5.6 K/uL (1.8-7.7); NEUTROPHILS % (AUTO) 80.7 % (40.0-70.0); RED BLOOD CELL COUNT(AUTO) 4.16 MIL/uL (4.2-6.2)
[2018-09-21] MEDS ORDERED: FLUO40CA49 PO (17:49)
[2018-09-21 18:46] VITALS: BP_SYST 122
[2018-09-21] MEDS: FUROSEMIDE 40 MG/4 ML VIAL IVP ONE (20:00)
[2018-09-21 20:15] VITALS: BP_SYST 93
[2018-09-21] MEDS: CARVEDILOL 25 MG TABLET (COREG) PO SCH (20:15)
[2018-09-21 23:00] VITALS: BP_SYST 92
[2018-09-22] MEDS: FUROSEMIDE 40 MG/4 ML VIAL IVP ONE (05:49)
[2018-09-22] MEDS: OMEPRAZOLE 20 MG CAPSULE.DR (PriLOSEC) PO SCH (06:09)
[2018-09-22 08:31] VITALS: BP_SYST 146
[2018-09-22] MEDS ORDERED: FUROSEMIDE 20 MG/2 ML VIAL IVP ONE (09:00)
[2018-09-22] MEDS ORDERED: ROSUVASTATIN CALCIUM 5 MG/TAB (CRESTOR) PO SCH (09:00)
[2018-09-22] MEDS: ATORVASTATIN 20 MG TABLET PO SCH (09:30)
[2018-09-22] MEDS: CARVEDILOL 25 MG TABLET (COREG) PO SCH ×2 (09:31→20:23)
[2018-09-22] MEDS: EZETIMIBE 10 MG TABLET PO SCH (09:31)
[2018-09-22] MEDS: FLUoxetine HCL 20 MG CAPSULE (PROzac) PO SCH (09:32)
[2018-09-22 12:21] VITALS: BP_SYST 108
[2018-09-22 16:02] VITALS: BP_SYST 100
[2018-09-22 20:00] VITALS: BP_SYST 114
[2018-09-22] MEDS ORDERED: FUROSEMIDE 40 MG/4 ML VIAL IVP SCH (21:00)
[2018-09-23 05:04] VITALS: BP_SYST 98
[2018-09-23] MEDS: OMEPRAZOLE 20 MG CAPSULE.DR (PriLOSEC) PO SCH (06:02)
[2018-09-23 06:04] LABS: ANION GAP 12 (5-15); CALCIUM 9.3 mg/dL (8.4-11.0); CHLORIDE 101 mmol/L (98-107); CREATININE 2.71 mg/dL (0.55-1.30); GLUCOSE 129 mg/dL (70-99); POTASSIUM 4.8 mmol/L (3.5-5.1); SODIUM SERUM 136 mmol/L (136-145); UREA NITROGEN, BLOOD 67 mg/dL (8-21)
[2018-09-23 06:18] LABS: ALANINE AMINOTRANSFERASE 41 U/L (12-78); ALBUMIN 2.7 g/dL (3.4-4.8); ASPARTATE AMINOTRANSFERASE 36 U/L (10-37); TOTAL BILIRUBIN 0.7 mg/dL (0.0-1.0)
[2018-09-23 06:32] LABS: BASOPHILS % (AUTO) 0.7 % (0.0-2.0); EOSINOPHILS # (AUTO) 0.1 K/uL (0.0-0.4); EOSINOPHILS % (AUTO) 1.1 % (0.0-4.0); HEMATOCRIT 37.1 % (36-48); HEMOGLOBIN 11.9 g/dL (12.0-16.0); LYMPHOCYTES # (AUTO) 0.6 K/uL (1.0-5.5); LYMPHOCYTES % (AUTO) 10.5 % (20.5-51.5); MEAN CORPUSCULAR HEMOGLOBIN 28 pg (27-31); MEAN CORPUSCULAR HGB CONC 32 % (32-36); MEAN CORPUSCULAR VOLUME 88 fL (79.0-98.0); MONOCYTES # (AUTO) 0.5 K/uL (0.0-1.0); MONOCYTES % (AUTO) 9.2 % (1.7-9.3); NEUTROPHILS # (AUTO) 4.6 K/uL (1.8-7.7); NEUTROPHILS % (AUTO) 78.5 % (40.0-70.0); PLATELET COUNT (AUTO) 140 K/uL (130-430); RED BLOOD CELL COUNT(AUTO) 4.23 MIL/uL (4.2-6.2); RED CELL DISTRIBUTION WIDTH 15.9 % (9.0-15.0); WHITE BLOOD COUNT (AUTO) 5.9 K/uL (4.8-10.8)
[2018-09-23 08:00] VITALS: BP_SYST 101
[2018-09-23] MEDS: EZETIMIBE 10 MG TABLET PO SCH (08:23)
[2018-09-23] MEDS: FLUoxetine HCL 20 MG CAPSULE (PROzac) PO SCH (08:24)
[2018-09-23] MEDS: ATORVASTATIN 20 MG TABLET PO SCH (08:24)
[2018-09-23] MEDS ORDERED: COMMUNICATION ORDER XX ONE (10:45)
[2018-09-23] MEDS: FUROSEMIDE 40 MG/4 ML VIAL IVP SCH ×3 (10:50→21:45)
[2018-09-23 11:37] VITALS: BP_SYST 93
[2018-09-23] MEDS: CARVEDILOL 25 MG TABLET (COREG) PO SCH ×2 (12:15→20:06)
[2018-09-23 15:34] VITALS: BP_SYST 95
[2018-09-23 16:11] LABS: TOTAL VOLUME 24HRS,URINE 1650 mL
[2018-09-23 16:12] LABS: CREATININE,URINE 40.8 MG/DL (30-125)
[2018-09-23 16:15] LABS: PATIENT WEIGHT 230 LBS
[2018-09-23 20:00] VITALS: BP_SYST 93
[2018-09-23 23:48] VITALS: BP_SYST 98
[2018-09-24] MEDS: OMEPRAZOLE 20 MG CAPSULE.DR (PriLOSEC) PO SCH (06:15)
[2018-09-24 07:30] LABS: BASOPHILS % (AUTO) 0.5 % (0.0-2.0); EOSINOPHILS # (AUTO) 0.1 K/uL (0.0-0.4); EOSINOPHILS % (AUTO) 0.8 % (0.0-4.0); HEMATOCRIT 34.8 % (36-48); HEMOGLOBIN 11.4 g/dL (12.0-16.0); LYMPHOCYTES # (AUTO) 0.6 K/uL (1.0-5.5); LYMPHOCYTES % (AUTO) 8.6 % (20.5-51.5); MEAN CORPUSCULAR HEMOGLOBIN 28 pg (27-31); MEAN CORPUSCULAR HGB CONC 33 % (32-36); MEAN CORPUSCULAR VOLUME 87 fL (79.0-98.0); MONOCYTES # (AUTO) 0.7 K/uL (0.0-1.0); MONOCYTES % (AUTO) 10.3 % (1.7-9.3); NEUTROPHILS # (AUTO) 5.2 K/uL (1.8-7.7); NEUTROPHILS % (AUTO) 79.8 % (40.0-70.0); PLATELET COUNT (AUTO) 123 K/uL (130-430); RED BLOOD CELL COUNT(AUTO) 4.03 MIL/uL (4.2-6.2); RED CELL DISTRIBUTION WIDTH 15.8 % (9.0-15.0); WHITE BLOOD COUNT (AUTO) 6.6 K/uL (4.8-10.8)
[2018-09-24 07:34] LABS: ANION GAP 10 (5-15); CALCIUM 9.3 mg/dL (8.4-11.0); CHLORIDE 104 mmol/L (98-107); CREATININE 2.55 mg/dL (0.55-1.30); GLUCOSE 116 mg/dL (70-99); POTASSIUM 3.9 mmol/L (3.5-5.1); SODIUM SERUM 139 mmol/L (136-145); UREA NITROGEN, BLOOD 66 mg/dL (8-21)
[2018-09-24 07:42] LABS: ALANINE AMINOTRANSFERASE 38 U/L (12-78); ALBUMIN 2.7 g/dL (3.4-4.8); ASPARTATE AMINOTRANSFERASE 32 U/L (10-37); TOTAL BILIRUBIN 0.8 mg/dL (0.0-1.0)
[2018-09-24 07:48] LABS: PROTHROMBIN TIME 34.1 SECS (9.5-12.5)
[2018-09-24 07:49] LABS: INR 3.5 (0.8-1.2)
[2018-09-24 08:10] VITALS: BP_SYST 99
[2018-09-24] MEDS: FLUoxetine HCL 20 MG CAPSULE (PROzac) PO SCH (09:26)
[2018-09-24] MEDS: ATORVASTATIN 20 MG TABLET PO SCH (09:27)
[2018-09-24] MEDS: EZETIMIBE 10 MG TABLET PO SCH (09:27)
[2018-09-24] MEDS: CARVEDILOL 25 MG TABLET (COREG) PO SCH ×2 (09:28→22:06)
[2018-09-24] MEDS: FUROSEMIDE 40 MG/4 ML VIAL IVP SCH ×3 (09:29→20:07)
[2018-09-24 11:21] VITALS: BP_SYST 92
[2018-09-24 15:05] VITALS: BP_SYST 102
[2018-09-24 20:00] VITALS: BP_SYST 101
[2018-09-24 22:00] VITALS: BP_SYST 104
[2018-09-25 00:35] VITALS: BP_SYST 102
[2018-09-25] MEDS: OMEPRAZOLE 20 MG CAPSULE.DR (PriLOSEC) PO SCH (06:27)
[2018-09-25 07:32] LABS: INR 2.7 (0.8-1.2); PROTHROMBIN TIME 26.7 SECS (9.5-12.5)
[2018-09-25 07:36] LABS: ANION GAP 10 (5-15); CALCIUM 9.3 mg/dL (8.4-11.0); CHLORIDE 103 mmol/L (98-107); GLUCOSE 118 mg/dL (70-99); POTASSIUM 3.6 mmol/L (3.5-5.1); SODIUM SERUM 141 mmol/L (136-145); UREA NITROGEN, BLOOD 61 mg/dL (8-21)
[2018-09-25 07:39] LABS: BASOPHILS % (AUTO) 0.4 % (0.0-2.0); EOSINOPHILS # (AUTO) 0.1 K/uL (0.0-0.4); EOSINOPHILS % (AUTO) 1.2 % (0.0-4.0); HEMATOCRIT 35.3 % (36-48); HEMOGLOBIN 11.5 g/dL (12.0-16.0); LYMPHOCYTES # (AUTO) 0.7 K/uL (1.0-5.5); LYMPHOCYTES % (AUTO) 10.3 % (20.5-51.5); MEAN CORPUSCULAR HEMOGLOBIN 28 pg (27-31); MEAN CORPUSCULAR HGB CONC 33 % (32-36); MEAN CORPUSCULAR VOLUME 86 fL (79.0-98.0); MONOCYTES # (AUTO) 0.6 K/uL (0.0-1.0); MONOCYTES % (AUTO) 9.7 % (1.7-9.3); NEUTROPHILS # (AUTO) 5.3 K/uL (1.8-7.7); NEUTROPHILS % (AUTO) 78.4 % (40.0-70.0); PLATELET COUNT (AUTO) 128 K/uL (130-430); RED BLOOD CELL COUNT(AUTO) 4.08 MIL/uL (4.2-6.2); RED CELL DISTRIBUTION WIDTH 15.6 % (9.0-15.0); WHITE BLOOD COUNT (AUTO) 6.7 K/uL (4.8-10.8)
[2018-09-25 07:45] LABS: ALANINE AMINOTRANSFERASE 37 U/L (12-78); ALBUMIN 2.7 g/dL (3.4-4.8); ASPARTATE AMINOTRANSFERASE 33 U/L (10-37); TOTAL BILIRUBIN 0.8 mg/dL (0.0-1.0)
[2018-09-25 08:05] VITALS: BP_SYST 107
[2018-09-25] MEDS: METOLAZONE 5 MG TABLET PO SCH (08:46)
[2018-09-25] MEDS: EZETIMIBE 10 MG TABLET PO SCH (08:46)
[2018-09-25] MEDS: FUROSEMIDE 40 MG/4 ML VIAL IVP SCH ×3 (08:46→21:09)
[2018-09-25] MEDS: ATORVASTATIN 20 MG TABLET PO SCH (08:47)
[2018-09-25] MEDS: FLUoxetine HCL 20 MG CAPSULE (PROzac) PO SCH (08:47)
[2018-09-25] MEDS: CARVEDILOL 25 MG TABLET (COREG) PO SCH ×2 (10:09→22:21)
[2018-09-25 12:30] VITALS: BP_SYST 100
[2018-09-25 16:45] VITALS: BP_SYST 106
[2018-09-25 19:40] VITALS: BP_SYST 106
[2018-09-26 01:21] VITALS: BP_SYST 108
[2018-09-26] MEDS: OMEPRAZOLE 20 MG CAPSULE.DR (PriLOSEC) PO SCH (06:22)
[2018-09-26 08:16] VITALS: BP_SYST 110
[2018-09-26] MEDS: FUROSEMIDE 40 MG/4 ML VIAL IVP SCH (08:18)
[2018-09-26] MEDS: FLUoxetine HCL 20 MG CAPSULE (PROzac) PO SCH (08:20)
[2018-09-26] MEDS: ATORVASTATIN 20 MG TABLET PO SCH (08:20)
[2018-09-26] MEDS: METOLAZONE 5 MG TABLET PO SCH (08:21)
[2018-09-26] MEDS: EZETIMIBE 10 MG TABLET PO SCH (08:21)
[2018-09-26] MEDS: CARVEDILOL 25 MG TABLET (COREG) PO SCH (09:26)
[2018-09-26] MEDS ORDERED: FURO-149 PO (10:02)
[2018-09-26] MEDS ORDERED: METO5TAB8 PO (10:03)
[2018-09-26 11:03] VITALS: BP_SYST 104
[2018-09-26 12:21] VITALS: BP_SYST 104
== END 2018-09-26 13:20 | disposition home or self-care (01) | DRG 682 ==
LOC: SED 16:26 → STU 18:07
PROVIDERS: ADMIT Internal Medicine Hospice and Palliative Medicine; ATTEND Internal Medicine Hospice and Palliative Medicine
DX: N17.9 Acute kidney failure, unspecified (principal); I50.23 Acute on chronic systolic (congestive) heart failure; I13.2 Hypertensive heart and chronic kidney disease with heart failure and with stage 5 chronic kidney disease, or end stage renal disease; I48.1 Persistent atrial fibrillation; Z68.41 Body mass index [BMI] 40.0-44.9, adult; I42.9 Cardiomyopathy, unspecified; N18.6 End stage renal disease; K21.9 Gastro-esophageal reflux disease without esophagitis; J44.9 Chronic obstructive pulmonary disease, unspecified; E78.00 Pure hypercholesterolemia, unspecified; E66.9 Obesity, unspecified; R14.0 Abdominal distension (gaseous); I50.9 Heart failure, unspecified; I25.10 Atherosclerotic heart disease of native coronary artery without angina pectoris; R79.1 Abnormal coagulation profile; I48.2 Chronic atrial fibrillation; E78.5 Hyperlipidemia, unspecified; Z95.810 Presence of automatic (implantable) cardiac defibrillator; Z79.899 Other long term (current) drug therapy; Z79.01 Long term (current) use of anticoagulants
CPT/HCPCS: 36415; 71045; 80053; 82550-TC; 82575-TC; 83880; 84484; 85025; 85610-TC; 85730-TC; 87081; 93005; 99285; G0378; J1940

== ENCOUNTER 2018-10-22 06:28 | Inpatient (IN) | payer OTHER ==
[~2018-10-22] VITALS: Ht 160 cm; Wt 91.2 kg
[~2018-10-22 06:28] MED LIST changes: +FLUO40CA49 PO; +FURO-149 PO; -FURO-150 PO; +METO5TAB8 PO
[2018-10-22 06:30] VITALS: BP_SYST 97
--- NOTE | 2018-10-22 06:37 | NUR ---
Placed in room 8 . Placed on bus driver/monitor, blood pressure machine and pulse oximeter. To gown for exam. Side rails up. Report given to TONA PAUL.
[2018-10-22] MEDS ORDERED: NACL 0.9% 1,000 ML IV ONE (06:38)
--- NOTE | 2018-10-22 06:40 | NUR ---
Pt was brought in by daughter complaining of dizziness and high blood pressure. Per daughter pt has been checking BP at home but readings would not populate. Daughter states she had an appointment but felt the need to go to the ED due to patient's symptoms. Pt states she feels nauseous but has not vomited. BP upon ED arrival is 92/72.
[2018-10-22 07:39] LABS: HEMATOCRIT 40.3 % (36-48); HEMOGLOBIN 13.1 g/dL (12.0-16.0); MEAN CORPUSCULAR HEMOGLOBIN 26 pg (27-31); MEAN CORPUSCULAR HGB CONC 33 % (32-36); MEAN CORPUSCULAR VOLUME 79 fL (79.0-98.0); PLATELET COUNT (AUTO) 149 K/uL (130-430); RED CELL DISTRIBUTION WIDTH 17.6 % (9.0-15.0); WHITE BLOOD COUNT (AUTO) 7.5 K/uL (4.8-10.8)
[2018-10-22 07:40] LABS: BASOPHILS % (AUTO) 0.4 % (0.0-2.0); LYMPHOCYTES # (AUTO) 1.7 K/uL (1.0-5.5); LYMPHOCYTES % (AUTO) 22.2 % (20.5-51.5); MONOCYTES # (AUTO) 0.7 K/uL (0.0-1.0); NEUTROPHILS # (AUTO) 5.1 K/uL (1.8-7.7); NEUTROPHILS % (AUTO) 67.4 % (40.0-70.0)
[2018-10-22 07:43] LABS: ANION GAP 14 (5-15); CALCIUM 9.6 mg/dL (8.4-11.0); CREATININE 3.03 mg/dL (0.55-1.30); GLUCOSE 134 mg/dL (70-99); SODIUM SERUM 120 mmol/L (136-145); UREA NITROGEN, BLOOD 82 mg/dL (8-21)
--- NOTE | 2018-10-22 07:45 | NUR ---
Pt received laying in bed with eyes open. LOC X4. Pts family is at bedside. No complaints of pPt received laying in bed with eyes open. LOC X4. Pts family is at bedside. No complaints of pain or distress at this time. Will continue to monitor.
[2018-10-22 07:49] LABS: ALANINE AMINOTRANSFERASE 58 U/L (12-78); AMYLASE 102 U/L (0-100); ASPARTATE AMINOTRANSFERASE 49 U/L (10-37); LIPASE 212 U/L (73-393); TOTAL BILIRUBIN 0.8 mg/dL (0.0-1.0)
[2018-10-22 07:54] LABS: POTASSIUM 2.7 mmol/L (3.5-5.1)
[2018-10-22 07:55] LABS: CHLORIDE 78 mmol/L (98-107)
[2018-10-22 08:00] LABS: PROTHROMBIN TIME 46.6 SECS (9.5-12.5)
[2018-10-22] MEDS ORDERED: POTASSIUM CHLORIDE 20 MEQ TAB.PRT.SR PO ONE (08:00)
[2018-10-22 08:02] LABS: INR 4.9 (0.8-1.2)
--- NOTE | 2018-10-22 08:13 | NUR ---
CT Pt off unit to radiology with tech
[2018-10-22] MEDS ORDERED: PIPERACILLIN/TAZO 3.375 GM in NS 50 ML IV ONE (08:15)
[2018-10-22] MEDS ORDERED: NACL 0.9% 1,500 ML IV ONE (08:15)
[2018-10-22] MEDS ORDERED: PHYTONADIONE 10 MG/ML AMP IM ONE (08:15)
--- NOTE | 2018-10-22 08:24 | NUR ---
CT Pt returned to unit from CT. No signs of distress
[2018-10-22 09:18] LABS: BILIRUBIN,URINE NEGATIVE (NEGATIVE); BLOOD, URINE 1+ (NEGATIVE); CLARITY/URINE CLEAR (CLEAR); COLOR,URINE YELLOW (YELLOW); GLUCOSE,URINE NEGATIVE (NEGATIVE); KETONES,URINE NEGATIVE (NEGATIVE); LEUKOCYTE ESTERASE ,URINE 1+ (NEGATIVE); NITRITE, URINE NEGATIVE (NEGATIVE); PROTEIN URINE 1+ (NEGATIVE); UROBILINOGEN,URINE 0.2 (0.2-1.0)
[2018-10-22 09:33] LABS: BACTERIA,URINE FEW /HPF (None Seen); FINE GRANULAR CASTS,URINE 0-10 /LPF (None Seen); RBC,URINE 0-3 /HPF (0-3)
[2018-10-22 09:34] LABS: MUCUS,URINE None Seen /LPF (None Seen); OTHER CASTS, URINE WBC CASTS 1+ /LPF (None Seen)
--- NOTE | 2018-10-22 09:37 | NUR ---
Pt resting in bed with eyes closed. No signs of distress, will continue to monitor
[2018-10-22] MEDS ORDERED: LEVOFLOXACIN 500 MG/D5W 100 ML IV ONE (09:45)
--- NOTE | 2018-10-22 10:15 | NUR ---
[facility] called for room placement. Per [facility]ST, will check room availability and call back with room number.
--- NOTE | 2018-10-22 11:31 | NUR ---
Admission Note Received patient from ER with diagnosis of Acute CHF Exacerbation. Initial Plan of Care discussed-patient's family-they verbalized their understanding. Family at bedside. Oriented to room, call light, pain management and safety.
--- NOTE | 2018-10-22 11:35 | NUR ---
Patient will be admitted to care of Dr. Knutson. Admitted to TELE unit. Will go to room 122B. Belongings list completed. Summary report printed. Report will be given at bedside.
[2018-10-22 11:37] VITALS: BP_SYST 110
[2018-10-22 12:46] VITALS: BP_SYST 112
[2018-10-22] MEDS: ONDANSETRON HCL 4 MG/2 ML VIAL IVP PRN (12:46)
--- NOTE | 2018-10-22 15:47 | NUR ---
CONSULTATION PAGED REASON FOR CONSULTATION:CHF WAS CONSULT CALLED?Y PERSON WHO WAS NOTIFIED:BRONSON CONSULTING PHYSICIAN:MICAH PENA (JAMMIE GREGG OPERATIONAL ASSISTANT) RN GYN SPECIALTY:CARDIO RN GYN PHONE NUMBER:[phone] REQUESTING PHYSICIAN:SHAQUILLE GARRIDO
--- NOTE | 2018-10-22 16:09 | NUR ---
ROUNDS/MD Pt assisted to bedside commode-had BM. Noted pt very weak, no c/o shortness of breath, no c/o pain or discomfort. Pt given Jello and applesauce per request-noted pt ate very little lunch. Pt's daughter at bedside. Call light within reach.
[2018-10-22 16:38] LABS: ANION GAP 11 (5-15); CALCIUM 9.1 mg/dL (8.4-11.0); CREATININE 3.01 mg/dL (0.55-1.30); GLUCOSE 135 mg/dL (70-99); POTASSIUM 3.2 mmol/L (3.5-5.1); SODIUM SERUM 120 mmol/L (136-145); UREA NITROGEN, BLOOD 78 mg/dL (8-21)
[2018-10-22] MEDS: cefTRIAXone 1 GM IVPB PREMIX 50 ML IV SCH (16:38)
[2018-10-22 16:40] LABS: CHLORIDE 84 mmol/L (98-107)
[2018-10-22 17:28] VITALS: BP_SYST 96
--- NOTE | 2018-10-22 18:49 | NUR ---
CLOSING NOTE Pt sitting up in bed visiting with her family, no c/o shortness of breath, no c/o dizziness. No c/o pain or discomfort. Pt's family remains at bedside. Family encouraged to call nursing for assist to the bedside commode or the bathroom for safety-family verbalized their understanding. Needs met, call light within reach.
--- NOTE | 2018-10-22 19:15 | NUR ---
Opening Note Received patient sitting at the side of the bed. Family is at bedside. Patient is alert and orient but is khmer speaking. Able to ambulate to the bedside commode with assistance. Lungs are clear and heart sound wnl. Currently on 1L NC and tolerating well. Family is requesting that one member stay overnight. IV on the Left AC 20 gauge S/L, with no s/s of infiltrations. Oriented the patient to the room and use of the call light. Safety precautions being observed and will monitor on rounds.
[2018-10-22 20:00] VITALS: BP_SYST 105
[2018-10-22] MEDS: ALLOPURINOL 100 MG TABLET (ZYLOPRIM) PO SCH (20:56)
[2018-10-22] MEDS ORDERED: FUROSEMIDE 40 MG/4 ML VIAL IVP SCH (21:00)
--- NOTE | 2018-10-22 22:11 | NUR ---
Patient in bed resting with family at bedside. no appearance of pain or respiratory distress.
--- NOTE | 2018-10-22 22:28 | NUR ---
CONSULT REASON FOR CONSULT: CHF PERSON I SPOKE WITH: ADOLFO CONSULTING PHYSICIAN: DR. AVILA ENTEROSTOMAL THERAPY NURSE PHONE NUMBER: [phone] ORDERING PHYSICIAN: DR. STILL
[2018-10-22 23:21] VITALS: BP_SYST 115
--- NOTE | 2018-10-23 00:22 | NUR ---
No pain or respiratory distress at this time. Family sleeping at bedside.
--- NOTE | 2018-10-23 02:15 | NUR ---
Patient comfortable in bed. Bed locked in low position and safety precautions being observed.
--- NOTE | 2018-10-23 04:35 | NUR ---
Patient asleep in bed. No appearance of pain or respiratory distress. Call light within reach.
[2018-10-23] MEDS: OMEPRAZOLE 20 MG CAPSULE.DR (PriLOSEC) PO SCH (06:03)
--- NOTE | 2018-10-23 06:55 | NUR ---
Closing Notes Patient sitting up at the bedside with family in the room. No pain at this time. IV site saline lock, clean dry and intact. Bed low and locked. No respiratory distress. Safety precautions in place. All needs have been met and will endorse care to oncoming RN.
[2018-10-23 07:04] LABS: INR 3.7 (0.8-1.2); PROTHROMBIN TIME 36.1 SECS (9.5-12.5)
--- NOTE | 2018-10-23 07:35 | NUR ---
Opening notes, Received pt in bed, sitting on eob, family at bedside. pt is aaox4, no c/o pain, pt is afebrile, no sob, no resp distress. pt edematous on lower extremities. safety precaution in place. call light in reach. pt encouraged to call for assist and pain meds or any concerns. will cont to monitor.
[2018-10-23 07:58] VITALS: BP_SYST 102
[2018-10-23] MEDS: ATORVASTATIN 20 MG TABLET PO SCH (08:23)
[2018-10-23] MEDS: cefTRIAXone 1 GM IVPB PREMIX 50 ML IV SCH (08:23)
[2018-10-23] MEDS: FLUoxetine HCL 20 MG CAPSULE (PROzac) PO SCH (08:24)
[2018-10-23] MEDS: POTASSIUM CHLORIDE 20 MEQ TAB.PRT.SR PO SCH (08:24)
[2018-10-23] MEDS: ALLOPURINOL 100 MG TABLET (ZYLOPRIM) PO SCH ×2 (08:24→15:00)
[2018-10-23] MEDS: EZETIMIBE 10 MG TABLET PO SCH (08:24)
[2018-10-23] MEDS: CARVEDILOL 25 MG TABLET (COREG) PO SCH ×2 (08:25→21:00)
[2018-10-23] MEDS ORDERED: FLUoxetine HCL 20 MG CAPSULE (PROzac) PO SCH (09:00)
[2018-10-23] MEDS: LORazepam 1 MG TABLET PO PRN (11:34)
--- NOTE | 2018-10-23 12:00 | NUR ---
pt in bed, family at bedside, no sob, no distress, no pain. will cont to monitor.
[2018-10-23 18:40] VITALS: BP_SYST 96
--- NOTE | 2018-10-23 19:42 | NUR ---
CLOSING NOTES, PT ENDORSED TO NIGHT RN, CASTILLO, PT HAS BEEN STABLE THE WHOLE SHIFT, NO C/O N/V NO DIZZINESS.
[2018-10-23 20:00] VITALS: BP_SYST 95
--- NOTE | 2018-10-23 20:09 | NUR ---
Opening notes Received report. Patient is asleep in bed. No signs of distress noted. Breathing is even and unlabored, no sob noted. IV is patent and intact. No needs at this time. Call light is with the patient. Safety precautions in place. Son at bedside.
--- NOTE | 2018-10-23 21:00 | NUR ---
Ambulatory Patient ambulated to bathroom with assist from son. No signs of distress noted. Breathing is even and unlabored. Provided patient with toothbrush and toothpaste per son request. No other needs. Call light with the patient. Safety precautions in place.
[2018-10-23] MEDS: FUROSEMIDE 20 MG TABLET PO SCH (21:49)
--- NOTE | 2018-10-23 21:49 | NUR ---
Medications Scheduled medications given. Educated the action and side effects of medications. Patient verbalized understanding and tolerated well. No signs of allergic reaction noted.
--- NOTE | 2018-10-24 00:09 | NUR ---
MD rounds Dr. Marie at bedside examining patient.
--- NOTE | 2018-10-24 02:00 | NUR ---
Sleeping No signs of distress noted. Breathing is even and unlabored. Call light with patient. Safety precautions in place. Family at bedside.
[2018-10-24 02:32] VITALS: BP_SYST 97
--- NOTE | 2018-10-24 04:00 | NUR ---
No change in condition.
[2018-10-24] MEDS: OMEPRAZOLE 20 MG CAPSULE.DR (PriLOSEC) PO SCH (06:12)
--- NOTE | 2018-10-24 06:46 | NUR ---
Closing notes Patient is asleep in bed. No signs of distress noted. Breathing is even and unlabored. IV is patent and intact. All needs met throughout the shift. Call light with the patient. Safety precautions in place. Will endorse care to day shift RN.
[2018-10-24 07:12] LABS: INR 2.1 (0.8-1.2); PROTHROMBIN TIME 20.6 SECS (9.5-12.5)
--- NOTE | 2018-10-24 07:50 | NUR ---
INITIAL NOTE RECEIVED PT IN BED, NO S/S OF DISTRESS OR SOB NOTED, PT HAS NO C/O PAIN AT THIS TIME, PT IN STABLE CONDITION, PT AAOX4, VERBAL, HAITIAN SPEAKING. IV CATHETER PATENT, NO SIGNS OF INFECTION OR INFILTRATION NOTED, SALINE LOCK. PT ON OXYGEN VIA NASAL CANNULA, SATURATION OF 97%. BED AT LOWEST POSITION, CALL LIGHT WITHIN REACH, WILL CONTINUE TO MONITOR PT FOR ANY CHANGES, FALL AND SAFETY PRECAUTIONS IN PLACE.
[2018-10-24] MEDS: EZETIMIBE 10 MG TABLET PO SCH (08:46)
[2018-10-24] MEDS: cefTRIAXone 1 GM IVPB PREMIX 50 ML IV SCH (08:46)
[2018-10-24] MEDS: FLUoxetine HCL 20 MG CAPSULE (PROzac) PO SCH (08:46)
[2018-10-24] MEDS: POTASSIUM CHLORIDE 20 MEQ TAB.PRT.SR PO SCH (08:46)
[2018-10-24] MEDS: ATORVASTATIN 20 MG TABLET PO SCH (08:46)
[2018-10-24] MEDS: CARVEDILOL 25 MG TABLET (COREG) PO SCH ×2 (08:47→21:00)
[2018-10-24 08:53] VITALS: BP_SYST 107
--- NOTE | 2018-10-24 10:06 | NUR ---
ROUNDS PT SITTING UP IN BED, NO S/S OF DISTRESS OR SOB NOTED, PT HAS NO C/O PAIN AT THIS TIME, PT IN STABLE CONDITION, PT RESTING COMFORTABLY, WILL CONTINUE TO MONITOR PT FOR ANY CHANGES.
[2018-10-24] MEDS: FUROSEMIDE 20 MG TABLET PO SCH ×2 (10:26→21:00)
[2018-10-24 10:49] LABS: ANION GAP 12 (5-15); CALCIUM 9.5 mg/dL (8.4-11.0); CREATININE 3.54 mg/dL (0.55-1.30); GLUCOSE 121 mg/dL (70-99); POTASSIUM 3.7 mmol/L (3.5-5.1); SODIUM SERUM 120 mmol/L (136-145); UREA NITROGEN, BLOOD 85 mg/dL (8-21)
[2018-10-24 10:52] LABS: CHLORIDE 83 mmol/L (98-107)
[2018-10-24 10:54] LABS: ALANINE AMINOTRANSFERASE 103 U/L (12-78); ASPARTATE AMINOTRANSFERASE 92 U/L (10-37); TOTAL BILIRUBIN 0.8 mg/dL (0.0-1.0)
[2018-10-24 11:12] LABS: HEMATOCRIT 40.2 % (36-48); HEMOGLOBIN 12.7 g/dL (12.0-16.0); MEAN CORPUSCULAR VOLUME 80 fL (79.0-98.0); RED BLOOD CELL COUNT(AUTO) 5.02 MIL/uL (4.2-6.2); WHITE BLOOD COUNT (AUTO) 8.8 K/uL (4.8-10.8)
[2018-10-24 11:13] LABS: MEAN CORPUSCULAR HEMOGLOBIN 25 pg (27-31); MEAN CORPUSCULAR HGB CONC 32 % (32-36); PLATELET COUNT (AUTO) 137 K/uL (130-430); RED CELL DISTRIBUTION WIDTH 17.2 % (9.0-15.0)
--- NOTE | 2018-10-24 11:24 | NUR ---
MD ROUNDS DR STILL ROUNDING, AWARE OF PATIENT'S CONDITION, NO NEW ORDERS GIVEN.
[2018-10-24 12:02] VITALS: BP_SYST 110
[2018-10-24 12:03] LABS: BASOPHILS % (AUTO) 0.2 % (0.0-2.0); EOSINOPHILS % (AUTO) 0.2 % (0.0-4.0); LYMPHOCYTES # (AUTO) 1.4 K/uL (1.0-5.5); LYMPHOCYTES % (AUTO) 16.3 % (20.5-51.5); MONOCYTES # (AUTO) 0.7 K/uL (0.0-1.0); MONOCYTES % (AUTO) 8.3 % (1.7-9.3); NEUTROPHILS # (AUTO) 6.6 K/uL (1.8-7.7)
--- NOTE | 2018-10-24 14:30 | NUR ---
ROUNDS PT IN BED, NO S/S OF DISTRESS OR SOB NOTED, PT HAS NO C/O PAIN AT THIS TIME, PT IN STABLE CONDITION, PT RESTING COMFORTABLY, WILL CONTINUE TO MONITOR PT FOR ANY CHANGES. FAMILY AT BEDSIDE.
--- NOTE | 2018-10-24 15:03 | NUR ---
MD CALL DAUGHTER SPOKE WITH DR STILL IN REGARDS TO DIALYSIS, MD GAVE NEW ORDERS TO HOLD COUMADIN TODAY AND GIVE VITAMIN K PO ONCE AND CHEST X RAY IN AM.
[2018-10-24] MEDS ORDERED: PHYTONADIONE 10 MG/ML AMP PO ONE (15:15)
[2018-10-24 16:07] VITALS: BP_SYST 96
[2018-10-24] MEDS ORDERED: WARFARIN SODIUM 2.5 MG TABLET PO ONE (18:00)
--- NOTE | 2018-10-24 18:18 | NUR ---
Dietitian Recommendations Consider adding Glucerna BID to pt's meals. Please refer to nutrition assessment for details. Kamran Prater MPH, RD
--- NOTE | 2018-10-24 18:26 | NUR ---
CLOSING NOTE PT IN BED, NO S/S OF DISTRESS OR SOB NOTED, PT HAS NO C/O PAIN AT THIS TIME, PT IN STABLE CONDITION, PT AAOX4, VERBAL, TELUGU SPEAKING. IV CATHETER PATENT, NO SIGNS OF INFECTION OR INFILTRATION NOTED, SALINE LOCK. PT ON OXYGEN VIA NASAL CANNULA, SATURATION OF 97%. BED AT LOWEST POSITION, CALL LIGHT WITHIN REACH, WILL ENDORSE CARE OF PT TO INCOMING NURSE, FALL AND SAFETY PRECAUTIONS IN PLACE.
--- NOTE | 2018-10-24 19:43 | NUR ---
Pt was received lying in bed fully AAO x4. Pt is Tajik Speaking and family members are visiting at the bedside. Saline lock in LAC is without any signs of infiltration. No c/o pain or discomfort at this time. Fall and safety precautions are in place. Call light is with pt and bed alarm is on. Pt was instructed to call for assistance as needed and pt verbalized understanding.
[2018-10-24 20:00] VITALS: BP_SYST 96
--- NOTE | 2018-10-24 21:00 | NUR ---
HS Lasix and Coreg held due to low BP. No c/o pain or discomfort. Family members are still visiting at the bedside.
--- NOTE | 2018-10-24 23:00 | NUR ---
Pt is sleeping without any distress noted. Fall and safety precautions are in place. Three female family members are at pt's bedside.
[2018-10-25 00:20] VITALS: BP_SYST 90
--- NOTE | 2018-10-25 01:00 | NUR ---
Pt is sleeping comfortably in bed. One female family member is at the bedside. Fall and safety precautions are in place.
--- NOTE | 2018-10-25 03:00 | NUR ---
Pt is sleeping without any distress noted. Saline lock is intact in RAC. Fall and safety precautions are in place.
--- NOTE | 2018-10-25 05:00 | NUR ---
Pt continues to sleep without any distress noted. Fall and safety precautions are in place.
[2018-10-25] MEDS: OMEPRAZOLE 20 MG CAPSULE.DR (PriLOSEC) PO SCH (06:16)
--- NOTE | 2018-10-25 06:43 | NUR ---
Pt is awake and resting quietly in bed. No c/o pain or discomfort. Saline lock is intact in RAC. All pt's needs were attended to. Will endorse to day shift nurse.
[2018-10-25 07:06] LABS: INR 1.9 (0.8-1.2); PROTHROMBIN TIME 18.8 SECS (9.5-12.5)
[2018-10-25 07:23] LABS: ANION GAP 10 (5-15); CALCIUM 9.2 mg/dL (8.4-11.0); CREATININE 4.09 mg/dL (0.55-1.30); GLUCOSE 102 mg/dL (70-99); POTASSIUM 4.1 mmol/L (3.5-5.1); SODIUM SERUM 121 mmol/L (136-145); UREA NITROGEN, BLOOD 96 mg/dL (8-21)
[2018-10-25 07:50] LABS: CHLORIDE 84 mmol/L (98-107)
[2018-10-25 08:00] VITALS: BP_SYST 84
--- NOTE | 2018-10-25 08:00 | NUR ---
Note Pt sitting on side of bed eating her breakfast assisted by her . Pt has O2 at 1L/nc at this time. Tele unit intact and attached at this time. IV in right AC intact and patent. Pt has productive coughing at this time. No needs noted at this time. Call light within reach.
[2018-10-25] MEDS: FUROSEMIDE 20 MG TABLET PO SCH ×2 (08:37→20:52)
[2018-10-25] MEDS: CARVEDILOL 25 MG TABLET (COREG) PO SCH ×2 (08:37→20:51)
[2018-10-25] MEDS: POTASSIUM CHLORIDE 20 MEQ TAB.PRT.SR PO SCH (08:39)
[2018-10-25] MEDS: EZETIMIBE 10 MG TABLET PO SCH (08:39)
[2018-10-25] MEDS: FLUoxetine HCL 20 MG CAPSULE (PROzac) PO SCH (08:39)
[2018-10-25] MEDS: cefTRIAXone 1 GM IVPB PREMIX 50 ML IV SCH (08:43)
[2018-10-25] MEDS: ATORVASTATIN 20 MG TABLET PO SCH (08:57)
--- NOTE | 2018-10-25 10:00 | NUR ---
Note Dr Knutson on the floor assessing pt and orders written and carried out. No needs noted at this time. Call light within reach.
[2018-10-25] MEDS ORDERED: HEPARIN SODIUM,PORCINE 5000 UNITS/ML VIAL MC ONE (11:30)
[2018-10-25] MEDS ORDERED: HEPARIN SODIUM,PORCINE 5000 UNITS/ML VIAL ONE ×2 (11:34→17:25)
[2018-10-25 12:00] VITALS: BP_SYST 98
--- NOTE | 2018-10-25 13:00 | NUR ---
Note Dr Rooney doing a Rafael catheter placement for hemodialysis on pt's right side of neck at this time per Dr Ny's order at 10am. Rafael catheter placed and x-ray completed at this time for placement. Pt's has been at bedside throughout shift. No needs noted. Call light within reach.
--- NOTE | 2018-10-25 15:55 | NUR ---
Note Pt resting in bed with 4-5 family members at bedside. Pt was given lunch tray at this time as pt was having Rafale catheter placed at lunch time and did not receive a lunch tray. Call light within reach.
[2018-10-25 16:00] VITALS: BP_SYST 108
--- NOTE | 2018-10-25 17:45 | NUR ---
Note Heparin given to pearl maker for end of dialysis ports.
--- NOTE | 2018-10-25 18:20 | NUR ---
Note Pt having dialysis running at this time, started around 1644. No SOB/resp distress or pain/discomfort noted at this time. Pt's and daughter at bedside at this time. Pt was checked on q1' and PRN all shift for needs and care. IV in right hand AC intact and patent at this time. No needs noted. Rafael cath in right neck intact and patent at this time. Pt's BSC next to bed for use. Call light within reach. Addendum: 10/25/18 at 1832 by Sarah Sweeney RN plug cutter is Valarie Villegas.
[2018-10-25 20:05] VITALS: BP_SYST 104
--- NOTE | 2018-10-25 20:05 | NUR ---
Opening notes Pt AAOx3. VSS, afebrile. No s/s distress noted. O2 sat at 100% on 1L via nasal cannula. IV saline lock RAC 20G clear, patent. Pt denies any pain at this time. Family at bedside. Call light within reach. To monitor.
--- NOTE | 2018-10-25 22:15 | NUR ---
Rounds Pt awake, alert. No s/s distress noted. IV saline lock R. AC 20G clear, patent. Call light within reach. at bedside. To monitor.
[2018-10-26] MEDS: ONDANSETRON HCL 4 MG/2 ML VIAL IVP PRN (00:05)
--- NOTE | 2018-10-26 00:15 | NUR ---
Rounds/Zofran Pt asleep, easily arousable. Pt c/o feeling nausea. Medicated with Zofran 4mg IVP as needed. Pt assisted to the bathroom. No distress noted. Pt's at bedside. To monitor.
[2018-10-26 00:16] VITALS: BP_SYST 95
--- NOTE | 2018-10-26 02:45 | NUR ---
Rounds Pt asleep. No s/s distress or discomfort noted. Call light within reach. Bed alarm on. at bedside. To monitor.
--- NOTE | 2018-10-26 05:50 | NUR ---
Closing notes Pt awake, alert. No s/s distress noted. R. subclavian Rafael cath dressing clean, dry intact. Call light within reach. Bed alarm on. at bedside. To endorse to Dayshift RN.
[2018-10-26] MEDS: OMEPRAZOLE 20 MG CAPSULE.DR (PriLOSEC) PO SCH (06:29)
[2018-10-26 06:34] LABS: INR 1.8 (0.8-1.2)
--- NOTE | 2018-10-26 07:55 | NUR ---
INITIAL ROUNDS Received pt AAOx4, no s/s resp distress, no c/o pain or discomfort, no c/o nausea or dizziness at this time. C/o feeling cold in the room-requested orthopaedic technologist to ask engineering to increase temperature in room. Pt's son and at bedside. Plan of care reviewed with pt and family-they verbalized their understanding. Noted Perma-cath to upper right chest wall with dressing clean, dry and intact. Pain management, disease process, skin and safety discussed-teach back done. Call light within reach.
[2018-10-26 08:00] VITALS: BP_SYST 93
[2018-10-26] MEDS: CARVEDILOL 25 MG TABLET (COREG) PO SCH ×2 (09:00→21:00)
[2018-10-26] MEDS: FUROSEMIDE 20 MG TABLET PO SCH ×2 (09:00→21:00)
[2018-10-26] MEDS: ATORVASTATIN 20 MG TABLET PO SCH (09:10)
[2018-10-26] MEDS: EZETIMIBE 10 MG TABLET PO SCH (09:10)
[2018-10-26] MEDS: FLUoxetine HCL 20 MG CAPSULE (PROzac) PO SCH (09:10)
[2018-10-26] MEDS: cefTRIAXone 1 GM IVPB PREMIX 50 ML IV SCH (09:11)
[2018-10-26] MEDS: POTASSIUM CHLORIDE 20 MEQ TAB.PRT.SR PO SCH (09:11)
--- NOTE | 2018-10-26 09:12 | NUR ---
Nutrition Update Rao Scale 18 Pt admitted for Acute Sys CHF exacerbation Diet: Cardiac BMI: 35 RD to follow per Nutrition care standards.
[2018-10-26] MEDS ORDERED: TUBERCULIN,PURIF.PROT.DERIV. 0.1 ML SYR ID ONE (10:00)
--- NOTE | 2018-10-26 10:10 | NUR ---
ROUNDS/IV Pt resting quietly in bed, very tired today. No s/s resp distress, no c/o pain or discomfort. Noted pt's RAC IV dislodged, removed and new IV placed to LFA, 22 gauge. Pt seen by Dr. Ny-new orders placed-will carry out as ordered. Family remains at bedside. Needs met, call light within reach.
[2018-10-26 10:11] LABS: ANION GAP 12 (5-15); CHLORIDE 90 mmol/L (98-107); CREATININE 3.57 mg/dL (0.55-1.30); GLUCOSE 132 mg/dL (70-99); POTASSIUM 4.3 mmol/L (3.5-5.1); SODIUM SERUM 124 mmol/L (136-145); UREA NITROGEN, BLOOD 62 mg/dL (8-21)
[2018-10-26] MEDS: guaiFENesin 200 MG/10 ML UDC PO PRN ×2 (10:49→17:12)
[2018-10-26 12:15] VITALS: BP_SYST 121
--- NOTE | 2018-10-26 13:18 | NUR ---
ROUNDS Pt sitting up in bed visiting with her . Pt just finished her lunch, ate well with no c/o GI distress. No c/o pain or discomfort, pt continues to have sporadic cough. No c/o shortness of breath. Needs met, call light within reach.
[2018-10-26] MEDS ORDERED: ALBUMIN HUMAN 25% 100 ML IV ONE (15:15)
--- NOTE | 2018-10-26 15:35 | NUR ---
ROUNDS/HD Pt resting quietly in bed with no s/s resp distress, no c/o pain or discomfort. Pt receiving dialysis as ordered-pt given Albumin by shower attendant due to low BP 76/55, BP now more stable per shower attendant BP 113/70. Noted elevated heart rate 120-134 per dialysis nurse. Needs met, call light within reach.
[2018-10-26 16:20] VITALS: BP_SYST 104
[2018-10-26] MEDS ORDERED: HEPARIN SODIUM,PORCINE 5000 UNITS/ML VIAL IVP ONE (17:45)
[2018-10-26] MEDS ORDERED: WARFARIN SODIUM 1 MG TABLET PO SCH (18:00)
--- NOTE | 2018-10-26 18:40 | NUR ---
CLOSING NOTE Pt sitting up in bed visiting with her family. No s/s resp distress, pt still with sporadic cough. No c/o pain or discomfort. Pt given due Coumadin. Pt assisted to bedside commode, voided and had a moderate BM, pt assisted back to bed. Needs met, call light within reach.
[2018-10-26 20:20] VITALS: BP_SYST 95
--- NOTE | 2018-10-26 20:20 | NUR ---
Opening notes Pt AAO, VSS, afebrile. No s/s distress noted. Pt denies any pain at this time. IV L. forearm 22G clear, patent. Family visiting at bedside. Call light within reach. To monitor.
--- NOTE | 2018-10-26 22:30 | NUR ---
Rounds Pt asleep. No s/s distress or discomfort noted. Family at bedside. Call light within reach. To monitor.
[2018-10-27 00:37] VITALS: BP_SYST 97
[2018-10-27] MEDS: guaiFENesin 200 MG/10 ML UDC PO PRN (00:48)
--- NOTE | 2018-10-27 01:40 | NUR ---
Rounds/Dizziness Pt c/o feeling dizzy per daughter while in the bathroom. Vitals checked BP 110/60 HR 118 on the monitor, O2 sat 94%. Ativan 1mg PO given as needed. Encouraged/Educated pt and daughter to use commode instead so the heart won't work as hard. Daughter verbalized understanding. Call light within reach. To monitor.
[2018-10-27] MEDS: LORazepam 1 MG TABLET PO PRN (01:54)
--- NOTE | 2018-10-27 04:40 | NUR ---
Rounds Pt asleep, respirations even and unlabored. Pt's at bedside. Call light within reach. Bed alarm on. To monitor.
[2018-10-27 06:10] LABS: HEPATITIS B SURFACE AG Negative (Negative); HEPATITIS C VIRUS AB 0.1 s/co ratio (0.0-0.9)
[2018-10-27] MEDS: OMEPRAZOLE 20 MG CAPSULE.DR (PriLOSEC) PO SCH (06:41)
--- NOTE | 2018-10-27 06:50 | NUR ---
Closing notes Pt asleep, easily arousable. No acute distress noted. IV saline lock L. FA 22G clear, patent. Call light, bed alarm on. at bedside. To endorse to AM nurse.
[2018-10-27 07:19] LABS: PROTHROMBIN TIME 20.1 SECS (9.5-12.5)
[2018-10-27 07:41] LABS: ALANINE AMINOTRANSFERASE 305 U/L (12-78); ANION GAP 11 (5-15); ASPARTATE AMINOTRANSFERASE 391 U/L (10-37); CALCIUM 9.1 mg/dL (8.4-11.0); CHLORIDE 96 mmol/L (98-107); CREATININE 2.89 mg/dL (0.55-1.30); GLUCOSE 106 mg/dL (70-99); POTASSIUM 4.2 mmol/L (3.5-5.1); SODIUM SERUM 133 mmol/L (136-145); TOTAL BILIRUBIN 1.4 mg/dL (0.0-1.0); UREA NITROGEN, BLOOD 35 mg/dL (8-21)
[2018-10-27 07:45] LABS: HEMATOCRIT 37.3 % (36-48); HEMOGLOBIN 11.7 g/dL (12.0-16.0); MEAN CORPUSCULAR HEMOGLOBIN 25 pg (27-31); MEAN CORPUSCULAR HGB CONC 32 % (32-36); MEAN CORPUSCULAR VOLUME 80 fL (79.0-98.0); PLATELET COUNT (AUTO) 114 K/uL (130-430); RED BLOOD CELL COUNT(AUTO) 4.68 MIL/uL (4.2-6.2); RED CELL DISTRIBUTION WIDTH 17.2 % (9.0-15.0); WHITE BLOOD COUNT (AUTO) 9.2 K/uL (4.8-10.8)
[2018-10-27 07:46] LABS: BASOPHILS % (AUTO) 0.1 % (0.0-2.0); LYMPHOCYTES # (AUTO) 0.8 K/uL (1.0-5.5); MONOCYTES # (AUTO) 1.1 K/uL (0.0-1.0); MONOCYTES % (AUTO) 11.9 % (1.7-9.3); NEUTROPHILS # (AUTO) 7.2 K/uL (1.8-7.7)
[2018-10-27 07:58] VITALS: BP_SYST 109
--- NOTE | 2018-10-27 08:00 | NUR ---
AM NOTES IN BED, AWAKE. FAMILY AT BEDSIDE. DENIES ANY PAIN OR DISCOMFORT. ON O2 1L, TOLERATED WELL. RIGHT IJ DRESSING DRY AND INTACT.SAFETY PRECAUTION OBSERVED. CALL LIGHT WITHIN REACH. ENC. TO CALL FOR HELP NEEDED. WILL MONITOR.
[2018-10-27] MEDS: cefTRIAXone 1 GM IVPB PREMIX 50 ML IV SCH (08:27)
[2018-10-27] MEDS: EZETIMIBE 10 MG TABLET PO SCH (08:28)
[2018-10-27] MEDS: FLUoxetine HCL 20 MG CAPSULE (PROzac) PO SCH (08:28)
[2018-10-27] MEDS: ATORVASTATIN 20 MG TABLET PO SCH (08:28)
[2018-10-27] MEDS: CARVEDILOL 25 MG TABLET (COREG) PO SCH (08:29)
[2018-10-27] MEDS: POTASSIUM CHLORIDE 20 MEQ TAB.PRT.SR PO SCH (08:29)
[2018-10-27] MEDS: FUROSEMIDE 20 MG TABLET PO SCH (08:29)
[2018-10-27] MEDS ORDERED: TUBERCULIN,PURIF.PROT.DERIV. 0.1 ML SYR ID ONE (09:00)
--- NOTE | 2018-10-27 10:30 | NUR ---
Notes Resting in bed, family at beside. no distress noted. ambulate with assist. will continue to monitor.
--- NOTE | 2018-10-27 11:30 | NUR ---
Notes- Resting waer on and off oxygen. O2 sat at Room temp is 95%.
--- NOTE | 2018-10-27 11:52 | NUR ---
Appointments: Follow up with outpatient dialysis at [facility] at [address] [place] [address] with chair time of Tues/Thurs/Sat from 1:30pm to 5:30pm. (Dialysis Nurse Coordinator is Nelly ) Follow up with Nephrology Dr. Ny on 11/01/18 at 1:45pm Follow up with [facility] - Patient needs to call for appointment Follow up with PCP Dr. Bravo - Patient needs to call for appointment Follow up with [facility] - Patient needs to call for appointment Referred to HCP ESRD program Follow up with HCP CHF program Fani Haynes, HCP Felting Machine Operator Helper [phone]
[2018-10-27 12:40] VITALS: BP_SYST 100
[2018-10-27 14:09] VITALS: BP_SYST 100
--- NOTE | 2018-10-27 14:37 | NUR ---
Home [facility] will provide home physical therapy and nursing for medication/diet teaching, new dialysis access/new dialysis patient teaching. Fani Haynes, HCP Media Sales Consultant [phone]
--- NOTE | 2018-10-27 15:13 | NUR ---
Notes- Resting in bed, waiting for the daughter to picking tech patient.
[2018-10-27 16:04] VITALS: BP_SYST 135
--- NOTE | 2018-10-27 17:15 | NUR ---
Discharge D/C patient home with home health, accompanied by daughter. Discharge instruction, copy of PPD test, Home health phone number and name, scheduled dialysis given and discussed to patient daughter. Daughter verbalize understanding. denies any pain or shortness of breath. has walker at home. has 2 soft bowel movement today. has right IJ for dialysis. arm band and IVL removed.
--- NOTE | 2018-10-30 09:59 | NUR ---
FOLLOW UP CHF APPOINTMENT CALLED DR CASTELLANOS OFFICE FOR CHF FOLLOW UP APPOINTMENT SPOKE TO LIZ ZELAYA ALREADY HAS FOLLOW UP APPOINTMENT WITH [facility] ON 10/31/2018 AT [address] [place] [address].
--- NOTE | 2018-11-01 08:54 | NUR ---
DISCHARGE FOLLOW UP PHONE CALL: EQUIPMENT WASHER phoned pt @ [phone] and spoke with dtr Diana while they were on their way out for an MD appointment. Per dtr, pt is not doing too well, her "feet are still swollen" and "her blood pressure was very low yesterday", after her scheduled dialysis. Per dtr, Dr. Bravo's appointment was rescheduled for today at 9AM and will forward concerns about pt's condition. Per Diana, they received a call from and initial visit will be on Monday 11/06. EQUIPMENT WASHER encouraged dtr to call SS if any questions arise. EQUIPMENT WASHER provided Diana with SS phone number. No further SS call needed at this time.
== END 2018-10-27 17:24 | disposition home health service (06) | DRG 280 ==
LOC: SED 06:28 → STU 10:14
PROVIDERS: ADMIT Internal Medicine Hospice and Palliative Medicine; ATTEND Internal Medicine Hospice and Palliative Medicine
PROC: 02HV33Z Insertion of Infusion Device into Superior Vena Cava, Percutaneous Approach (ICD-10-PCS; principal; 2018-10-25)
PROC: B548ZZA Ultrasonography of Superior Vena Cava, Guidance (ICD-10-PCS; 2018-10-25)
PROC: 5A1D70Z Performance of Urinary Filtration, Intermittent, Less than 6 Hours Per Day (ICD-10-PCS; 2018-10-26)
DX: I13.2 Hypertensive heart and chronic kidney disease with heart failure and with stage 5 chronic kidney disease, or end stage renal disease (principal); N18.6 End stage renal disease; I21.4 Non-ST elevation (NSTEMI) myocardial infarction; I50.23 Acute on chronic systolic (congestive) heart failure; N17.0 Acute kidney failure with tubular necrosis; E87.1 Hypo-osmolality and hyponatremia; D68.9 Coagulation defect, unspecified; E87.2 Acidosis; I48.1 Persistent atrial fibrillation; N18.4 Chronic kidney disease, stage 4 (severe); N12 Tubulo-interstitial nephritis, not specified as acute or chronic; R65.10 Systemic inflammatory response syndrome (SIRS) of non-infectious origin without acute organ dysfunction; I42.9 Cardiomyopathy, unspecified; E66.9 Obesity, unspecified; E78.5 Hyperlipidemia, unspecified; E86.9 Volume depletion, unspecified; E87.6 Hypokalemia; E11.22 Type 2 diabetes mellitus with diabetic chronic kidney disease; E87.8 Other disorders of electrolyte and fluid balance, not elsewhere classified; Z95.810 Presence of automatic (implantable) cardiac defibrillator; Z68.35 Body mass index [BMI] 35.0-35.9, adult; Z79.899 Other long term (current) drug therapy
CPT/HCPCS: 36415; 70450-TC; 71045; 76937; 80048; 80053; 81000-TC; 82150-TC; 82550-TC; 83605; 83690-TC; 83880; 84484; 85025; 85379; 85610-TC; 85730-TC; 86580; 86710; 86803; 87040-TC; 87081; 87086; 87340; 90935; 90937; 93005; 96361; 96365; 96367; 96372; 99285; G0378; J0696; J1644; J1956; J2405; J3430; J7030; J7040; P9046